=== PATIENT | male | born 1990 | race Caucasian/White ===

== ENCOUNTER 2023-10-31 20:50 | Emergency (ER) | payer OTHER, SELFPAY ==
[2023-10-31 20:57] VITALS: BP 138/73; PULSE 78; RESP 18; TEMP 37.1; O2SAT 100; BMI 29.2
--- OUTSIDE RECORDS SUMMARY | 2023-10-31 22:09 | XMS_ITS | Continuity of Care Document ---
Author Organization [facility] Aldo Adelfo lt Address [address] [place] [address]- Care Team Providers Care Case Management Manager Name Role Phone Sunny Gunn MD Primary Care Physician [place] [facility] [place]22 [facility] [place] Adult [address] [place] [address]- Allergies, Adverse Reactions, Alerts No Known Allergies Immunizations Given and Recorded Vaccine Date Status Refusal Reason tetanus/diphtheria/pertussis, acel(Tdap) 1 02/12/21 Given 1Result Comment: [facility]: 49566-695-21 Medications gabapentin 300 mg oral capsule 300 mg, 1, capsule, By Mouth, 3 times a day, # 90 capsule, Refills 0, Tot. Refills 0, Maintenance, 12/30/21 11:06:00 EDT, Route to Pharmacy Electronically, [facility], Partial fill upon patient request if the prescription is for a schedule... Start Date: 12/30/21 Stop Date: 01/29/22 Status: Ordered Medrol Dosepak 4 mg oral tablet 1 pack/packet, By Mouth, Daily, for 6 days, as directed on package labeling, # 21 tablet, 5 Refills, Acute 01/21/22 9:40:00 EDT, 12/16/21 9:40:00 EDT, Tablet, [id number], Partial fill upon patient request if the prescription is for a... Start Date: 12/16/21 Stop Date: 01/21/22 Status: Ordered Problem List Condition Effective Dates Status Health Status Inform ant BMI 36.0-36.9,adult(Confirmed) Active Family history of myocardial infarction at age less than 60(Confirmed) Active Obese class II(Confirmed) Active Social History Social History Type Response Tobacco Use: 4 or less cigar ettes(less than 1/4 pack)/day in last 30 days. Sex
--- OUTSIDE RECORDS SUMMARY | 2023-10-31 22:09 | XMS_ITS | Continuity of Care Document ---
Author Organization [facility] Aldo Adelfo lt Address [address] [place] [address]- Care Team Providers Care Patient Care Coordinator Name Role Phone Sunny Gunn MD Primary Care Physician [phone] [facility] [place] Date(s): 02/14/22 - 02/21/22 [facility] [place] Adult [address] [place] [address]- Attending Physician: Eda Velarde NP Referring Physician: Sunny Gunn MD Allergies, Adverse Reactions, Alerts No Known Allergies Immunizations Given and Recorded Vaccine Date Status Refusal Reason tetanus/diphtheria/pertussis, acel(Tdap) 1 02/12/21 Given 1Result Comment: [facility]: 50611-738-27 Medications gabapentin 300 mg oral capsule 600 mg, 2, capsule, By Mouth, 3 times a day, DOSAGE INCREASE, # 180 capsule, Refills 1, Tot. Refills 1, Maintenance, 02/14/22 9:37:00 EDT, Route to Pharmacy Electronically, [facility], Partial fill upon patient request if the prescription i... Start Date: 02/14/22 Status: Ordered Problem List Condition Effective Dates Status Health Status Inform ant Family history of myocardial infarction at age less than 60(Confirmed) Active Low back pain(Confirmed) Active Obese class II(Confirmed) Active Tobacco use(Confirmed) Active Vital Signs Most recent to oldest [Reference Range]: 1 Height 185.42 cm (02/14/22 9:00 AM) Weight 121.9 kg (02/14/22 9:00 AM) Oxygen Saturation [94-100 %] 98 % (02/14/22 9:00 AM) Pulse Rate [55-90 bpm] 60 bpm (02/14/22 9:00 AM) Body Mass Index [18.5-24.99] 35.46 *>HHI* (02/14/22 9:00 AM) Blood Pressure [90-138/55-84 mm Hg] 120/ 72mm Hg (02/14/22 9:00 AM) Respiratory Rate [16-30 br/min] 16 br/mi n (02/14/22 9:00 AM) Mode of Delivery (Oxygen) Room air (02/14/22 9:00 AM) Blood pressure sites Arm, left (02/14/22 9:00 AM) Weight Obtained Via Standing scale (02/14/22 9:00 AM) Social History Social History Type Response Tobacco Use: 4 or less cigar ettes(less than 1/4 pack)/day in last 30 days. Sex
--- OUTSIDE RECORDS SUMMARY | 2023-10-31 22:09 | XMS_ITS | Continuity of Care Document ---
Author Organization [facility] Aldo Adelfo lt Address [address] [place] [address]- Care Team Providers Care Punch Molder Name Role Phone Sunny Gunn MD Primary Care Physician [phone] [place] [facility] [place] 01/23/22 [facility] Adult [address] [place] [address]- Allergies, Adverse Reactions, Alerts No Known Allergies Immunizations Given and Recorded Vaccine Date Status Refusal Reason tetanus/diphtheria/pertussis, acel(Tdap) 1 02/12/21 Given 1Result Comment: [facility]: 88446-866-90 Medications gabapentin 300 mg oral capsule 300 mg, 1, capsule, By Mouth, 3 times a day, for 30 days, # 90 capsule, Refills 0, Tot. Refills 0, Hard Stop 01/29/22 11:06:00 EDT, 12/30/21 11:06:00 EDT, Route to Pharmacy Electronically, [facility], Partial fill upon patient request if th... Start Date: 12/30/21 Stop Date: 01/29/22 Status: Ordered gabapentin 300 mg oral capsule 300 mg, 1, capsule, By Mouth, 4 times a day, # 120 capsule, Refills 0, Tot. Refills 0, Maintenance,01/29/22 11:06:00 EDT, [facility], [facility], Partial fill upon patient request if the prescription is for a schedule... Start Date: 01/29/22 Stop Date: 02/28/22 Status: Ordered Problem List Condition Effective Dates Status Health Status Inform ant BMI 36.0-36.9,adult(Confirmed) Active Family history of myocardial infarction at age less than 60(Confirmed) Active Obese class II(Confirmed) Active Social History Social History Type Response Tobacco Use: 4 or less cigar ettes(less than 1/4 pack)/day in last 30 days. Sex
--- OUTSIDE RECORDS SUMMARY | 2023-10-31 22:09 | XMS_ITS | Continuity of Care Document ---
Author Organization [facility] Aldo Adelfo lt Address [address] [place] [address]- Care Team Providers Care Transit Planner Name Role Phone Velia AGUIRRE, Sunny Quinones Primary Care Physician [phone] Encounter [facility] Date(s): 06/30/22 - 07/07/22 [facility] Adult [address] [place] [address]- Attending Physician: Syd DUBOIS, Eda Bell Allergies, Adverse Reactions, Alerts No Known Allergies Immunizations Given and Recorded Vaccine Date Status Refusal Reason tetanus/diphtheria/pertussis, acel(Tdap) 1 02/12/21 Given 1Result Comment: [facility]: 85026-792-53 Medications gabapentin 300 mg oral capsule 600 mg, 2, capsule, By Mouth, 4 times a day, # 240 capsule, Refills 6, Tot. Refills 6, Maintenance,06/30/22 13:42:00 EST, Route to Pharmacy Electronically, [facility], Partial fill upon patient request if the prescription is for a schedule... Start Date: 06/30/22 Status: Ordered Problem List Condition Confirmation Course Effective Dates Status Health St atus Informant Obesity (BMI 35.0-39.9 without comorbidity) Confirmed Active Family history of myocardial infarction at age less than 60 Confirmed Active Low back pain Confirmed Active Tobacco use Confirmed Active Vital Signs Most recent to oldest [Reference Range]: 1 Height 185.42 cm (06/30/22 1:33 PM) Weight 126.9 kg (06/30/22 1:33 PM) Oxygen Saturation [94-100 %] 98 % (06/30/22 1:33 PM) Pulse Rate [55-90 bpm] 72 bpm (06/30/22 1:33 PM) Body Mass Index [18.5-24.99 kg/m2] 36.91 kg/m2 *>HHI* (06/30/22 1:33 PM) Blood Pressure [90-138/55-84 mm Hg] 112/ 74mm Hg (06/30/22 1:33 PM) Respiratory Rate [16-30 br/min] 20 br/mi n (06/30/22 1:33 PM) Temperature [96.8-100.4 DegF] 98.2 DegF (06/30/22 1:33 PM) Mode of Delivery (Oxygen) Room air (06/30/22 1:33 PM) Blood pressure sites Arm, right (06/30/22 1:33 PM) Temperature Route Oral (06/30/22 1:33 PM) Weight Obtained Via Standing scale (06/30/22 1:33 PM) Social History Social History Type Response Tobacco Use: 4 or less cigar ettes(less than 1/4 pack)/day in last 30 days. Sex Note * Roshni Aguilar: SIGN, VERIFY, PERFORM Event Display: Patient Education/Instruction Authored Date: [id number] [facility] Clinical Summary Name VIVIANE VENEGAS Age 31 Years 1990 PCP Velia AGUIRRE, Sunny Quinones PCP Visit Date 06/30/2022 13:25:00 Additional Instructions: Scheduled Appointments?? Future Appointments ?No Future Appointments Scheduled Follow-Up Instructions ?? With: Address: When: Syd DUBOIS, Eda Bell [address] [place] [address] Business (1) In 6 months Comments: CPE Diagnosis Medications: Please continue your medications until treatment is completed or stopped by your provider. Discuss any questions related to medications with your provider. Medications to Continue with No Changes [facility], [address], [place] [id number], [phone] Gabapentin (gabapentin 300 mg oral capsule) 2 capsule Oral 4 times a day. Refills: 6. Next Dose: Allergy Info:?? NKA Medications Given This Visit Future Orders ?No future orders Vital Signs Height 185.42 cm Weight 126.9 kg BMI 36.91 kg/m2 Blood Pressure 112 mm Hg/74 mm Hg Temperature 98.2 DegF Pulse Rate 72 bpm Respiratory Rate 20 br/min 02 Sat Mode of Delivery 98 %/Room air You can now view a summary of your hospital visit from the comfort of your home through a free online portal called [employer]. [employer] is a website that allows you to securely view your medical information including discharge summary, medications and follow-up visits. ??You can alsosend a secure electronic message to your doctor???s office to request appointments, renew medications or just ask a question. You can enroll at [email or web address] or register during your next office visit. Disclaimer:?? The information provided is of a general nature and is intended to be used in conjunction with the recommendations and advice of your health care practitioner. ??Every effort has been made to ensure that the information provided is accurate and complete at the time it is provided to you however, as your needs change, or, as new ??information becomes available, different or additional instructions may be required. If you have questions, please consult with your primary care provider or pharmacist, as appropriate. ??This information is not intended to serve as substitution for assessment and evaluation by a qualified health care provider. If you do not have a primary care provider, you may find a [facility] provider by calling [facility] [address] [employer] at [phone]. For information about the plan of care including goals and instructions for your diagnosis, please see the patient education orders section of this document. Patient Education Materials?? The content of this educational material or handout may have been modified, supplemented, or adapted from its original content and format to support your individualized medical care. Patient Care team information Care Team Personnel Name: Velia AGUIRRE, Sunny Quinones Position: S Primary Care Physician Member Role: PCP Address: Address: [address] [place] [address] [place] [address]- Care Team Related Persons Name: EMY VENEGAS Name: FLOR LANDRY Address: home [address] [facility] [place] [address]
--- OUTSIDE RECORDS SUMMARY | 2023-10-31 22:09 | XMS_ITS | Continuity of Care Document ---
Author Organization [facility] Aldo Adelfo lt Address [address] [place] [address]- Care Team Providers Care Nuclear Instructor Name Role Phone Sunny Gunn MD Primary Care Physician [phone] [place] [facility] [place] Date(s): 01/20/22 - 02/19/22 [facility] [place] Adult [address] [place] [address]- Allergies, Adverse Reactions, Alerts No Known Allergies Immunizations Given and Recorded Vaccine Date Status Refusal Reason tetanus/diphtheria/pertussis, acel(Tdap) 1 02/12/21 Given 1Result Comment: [facility]: 59525-353-95 Medications gabapentin 300 mg oral capsule 600 mg, 2, capsule, By Mouth, 3 times a day, DOSAGE INCREASE, # 180 capsule, Refills 1, Tot. Refills 1, Maintenance, 02/14/22 9:37:00 EDT, Route to Pharmacy Electronically, [facility], Partial fill upon patient request if the prescription i... Start Date: 02/14/22 Status: Ordered Problem List Condition Effective Dates Status Health Status Inform ant Family history of myocardial infarction at age less than 60(Confirmed) Active Low back pain(Confirmed) Active Obese class II(Confirmed) Active Tobacco use(Confirmed) Active Social History Social History Type Response Tobacco Use: 4 or less cigar ettes(less than 1/4 pack)/day in last 30 days. Sex
--- OUTSIDE RECORDS SUMMARY | 2023-10-31 22:09 | XMS_ITS | Continuity of Care Document ---
Author Organization [facility] Aldo Adelfo lt Address [address] [place] [address]- Care Team Providers Care Denial Resolution Specialist Name Role Phone Sunny Gunn MD Primary Care Physician [place] [facility] [place] 01/02/23 - 01/09/23 [facility] Miko [place] Adult [address] [place] [address]- Encounter Diagnosis Low back pain(Discharge Diagnosis) - 01/02/23 ADHD(Discharge Diagnosis) - 01/02/23 Obese class I(Discharge Diagnosis) - 01/02/23 Tobacco use(Discharge Diagnosis) - 01/02/23 Attending Physician: Eda Velarde NP Referring Physician: Sunny Gunn MD Allergies, Adverse Reactions, Alerts No Known Allergies Immunizations Given and Recorded Vaccine Date Status Refusal Reason tetanus/diphtheria/pertussis, acel(Tdap) 1 02/12/21 Given 1Result Comment: [facility]: 85955-034-98 Medications amphetamine-dextroamphetamine 15 mg oral tablet 0 Refills, Maintenance, 01/02/23 14:14:00 EDT, Partial fill upon patient request if the prescription is for a schedule II opioid drug. Start Date: 01/02/23 Status: Ordered amphetamine-dextroamphetamine 30 mg oral capsule, extended release 0 Refills, Maintenance, 01/02/23 14:13:00 EDT, Partial fill upon patient request if the prescription is for a schedule II opioid drug. Start Date: 01/02/23 Status: Ordered gabapentin 300 mg oral capsule 600 mg, 2, capsule, By Mouth, 3 times a day, DOSAGE DECREASE, # 180 capsule, Refills 6, Tot. Refills 6, Maintenance, 01/02/23 14:23:00 EDT, Route to Pharmacy Electronically, [facility], Partial fill upon patient request if the prescription... Start Date: 01/02/23 Status: Ordered Problem List Condition Confirmation Course Effective Dates Status Health St [facility] Informant Family history of myocardial infarction at age less than 60 Confirmed Active Low back pain Confirmed Active Obese class I Confirmed Active Tobacco use Confirmed Active Diagnosis Diagnosis Type Effective Dates Health Status Cl inical Service Informant ADHD Discharge Diagnosis 01/02/23 Low back pain Discharge Diagnosis 01/02/23 Obese class I Discharge Diagnosis 01/02/23 Tobacco use Discharge Diagnosis 01/02/23 Vital Signs Most recent to oldest [Reference Range]: 1 Height 185.42 cm (01/02/23 2:15 PM) Weight 105.7 kg (01/02/23 2:15 PM) Oxygen Saturation [94-100 %] 99 % (01/02/23 2:15 PM) Pulse Rate [55-90 bpm] 72 bpm (01/02/23 2:15 PM) Body Mass Index [18.5-24.99 kg/m2] 30.74 kg/m2 *>HHI* (01/02/23 2:15 PM) Blood Pressure [90-138/55-84 mm Hg] 126/ 74mm Hg (01/02/23 2:15 PM) Respiratory Rate [16-30 br/min] 16 br/mi n (01/02/23 2:15 PM) Temperature [96.8-100.4 DegF] 98.2 DegF (01/02/23 2:15 PM) Mode of Delivery (Oxygen) Room air (01/02/23 2:15 PM) Blood pressure sites Arm, right (01/02/23 2:15 PM) Temperature Route Oral (01/02/23 2:15 PM) Weight Obtained Via Standing scale (01/02/23 2:15 PM) Social History Social History Type Response Tobacco Use: 4 or less cigar ettes(less than 1/4 pack)/day in last 30 days. Sex Patient Care team information Care Team Personnel Name: Sunny Gunn MD Position: S Physician - Primary Care Member Role: PCP Address: Address: [address] [place] [address]- Care Team Related Persons Name: EMY VENEGAS Name: FLOR LANDRY Address: home [address] [facility] [place] [address]
--- OUTSIDE RECORDS SUMMARY | 2023-10-31 22:09 | XMS_ITS | Continuity of Care Document ---
Author Organization [facility] Aldo Adelfo lt Address [address] [place] [address]- Care Team Providers Care Wool Hanker Name Role Phone Sunny Gunn MD Primary Care Physician [phone] [facility] [place] Date(s): 12/30/21 - 01/29/22 [facility] Miko Carlson Adult [address] [place] [address]- Allergies, Adverse Reactions, Alerts No Known Allergies Immunizations Given and Recorded Vaccine Date Status Refusal Reason tetanus/diphtheria/pertussis, acel(Tdap) 1 02/12/21 Given 1Result Comment: [facility] [place]: 15475-276-89 Medications gabapentin 300 mg oral capsule 300 mg, 1, capsule, By Mouth, 4 times a day, # 120 capsule, Refills 0, Tot. Refills 0, Maintenance,01/29/22 11:06:00 EDT, Route to Pharmacy Electronically, [facility], Partial fill upon patient request if the [...]
--- OUTSIDE RECORDS SUMMARY | 2023-10-31 22:09 | XMS_ITS | Continuity of Care Document ---
Author Organization [facility] Aldo Adelfo lt Address [address] [place] [address]- Care Team Providers Care Grinding Wheel Dresser Name Role Phone Sunny Gunn MD Primary Care Physician Encounter [facility] Date(s): 02/12/21 - 02/19/21 [facility] Adult [address] [place] [address]- Encounter Diagnosis Family history of myocardial infarction at age less than 60(Discharge Diagnosis) - 02/12/21 Attending Physician: Sunny Gunn MD Referring Physician: Eda Velarde NP Allergies, Adverse Reactions, Alerts Substance Reaction Severity Status NKA Active Immunizations Given and Recorded Vaccine Date Status Refusal Reason tetanus/diphtheria/pertussis, acel(Tdap) 1 02/12/21 Given 1Result Comment: [facility]: [id number] Problem List Condition Effective Dates Status Health Status Inform ant BMI 36.0-36.9,adult(Confirmed) Active Family history of myocardial infarction at age less than 60(Confirmed) Active Diagnosis Diagnosis Type Effective Dates Health Status Clinical Service Informant Family history of myocardial infarction at age less than 60 Discharge Diagnosis 02/12/21 Vital Signs Most recent to oldest [Reference Range]: 1 Height 185.42 cm (02/12/21 8:39 AM) Weight 124.7 kg (02/12/21 8:39 AM) Oxygen Saturation [94-100 %] 98 % (02/12/21 8:39 AM) Pulse Rate [55-90 bpm] 60 bpm (02/12/21 8:39 AM) Body Mass Index [18.5-24.99] 36.27 *>HHI* (02/12/21 8:39 AM) Blood Pressure [90-138/55-84 mm Hg] 128/ 68mm Hg (02/12/21 8:39 AM) Respiratory Rate [16-30 br/min] 12 br/mi n *L* (02/12/21 8:39 AM) Temperature [96.8-100.4 DegF] 98.0 DegF (02/12/21 8:39 AM) Mode of Delivery (Oxygen) Room air (02/12/21 8:39 AM) Blood pressure sites Arm, right (02/12/21 8:39 AM) Temperature Route Oral (02/12/21 8:39 AM) Weight Obtained Via Standing scale (02/12/21 8:39 AM) Social History Social History Type Response Tobacco Use: 4 or less cigar ettes(less than 1/4 pack)/day in last 30 days. Sex
--- OUTSIDE RECORDS SUMMARY | 2023-10-31 22:09 | XMS_ITS | Continuity of Care Document ---
Author Organization [facility] Adelfo lt Address [address] [place] [address]- Care Team Providers Care Automatic Typewriter Inspector Name Role Phone Sunny Gunn MD Primary Care Physician [place] [facility] [place] 12[place]16/21 - 12/23/21 [facility] Adult [address] [place] [address]- Attending Physician: Syd DUBOIS, Eda Bell Allergies, Adverse Reactions, Alerts No Known Allergies Immunizations Given and Recorded Vaccine Date Status Refusal Reason tetanus/diphtheria/pertussis, acel(Tdap) 1 02/12/21 Given 1Result Comment: [facility]: [id number] Medications gabapentin 100 mg oral capsule 100 mg, 1, capsule, By Mouth, 3 times a day, # 90 capsule, Refills 0, Tot. Refills 0, Maintenance, 12/20/21 17:01:00 EDT, Route to Pharmacy Electronically, [id number], Partial fill upon patient request if the prescription is for a schedule... Start Date: 12/20/21 Status: Ordered Medrol Dosepak 4 mg oral tablet 1 pack/packet, By Mouth, Daily, for 6 days, as directed on package labeling, # 21 tablet, 5 Refills, Acute 01/21/22 9:40:00 EDT, 12/16/21 9:40:00 EDT, Tablet, [id number], Partial fill upon patient request if the prescription is for a... Start Date: 12/16/21 Stop Date: 01/21/22 Status: Ordered Problem List Condition Effective Dates Status Health Status Inform ant BMI 36.0-36.9,adult(Confirmed) Active Family history of myocardial infarction at age less than 60(Confirmed) Active Obese class II(Confirmed) Active Vital Signs Most recent to oldest [Reference Range]: 1 Height 185.42 cm (12/16/21 9:04 AM) Weight 127.1 kg (12/16/21 9:04 AM) Oxygen Saturation [94-100 %] 99 % (12/16/21 9:04 AM) Pulse Rate [55-90 bpm] 66 bpm (12/16/21 9:04 AM) Body Mass Index [18.5-24.99] 36.97 *>HHI* (12/16/21 9:04 AM) Blood Pressure [90-138/55-84 mm Hg] 114/ 78mm Hg (12/16/21 9:04 AM) Respiratory Rate [16-30 br/min] 20 br/mi n (12/16/21 9:04 AM) Mode of Delivery (Oxygen) Room air (12/16/21 9:04 AM) Blood pressure sites Arm, left (12/16/21 9:04 AM) Social History Social History Type Response Tobacco Use: 4 or less cigar ettes(less than 1/4 pack)/day in last 30 days. Sex
--- OUTSIDE RECORDS SUMMARY | 2023-10-31 22:09 | XMS_ITS | Continuity of Care Document ---
Author Organization [facility] Aldo Adelfo lt Address [address] [place] [address]- Care Team Providers Care Wood Grainer Name Role Phone Sunny Gunn MD Primary Care Physician [place] [facility] [place]/20/22 - 02/19/22 [facility] Adult [address] [place] [address]- Allergies, Adverse Reactions, Alerts No Known Allergies Immunizations Given and Recorded Vaccine Date Status Refusal Reason tetanus/diphtheria/pertussis, acel(Tdap) 1 02/12/21 Given 1Result Comment: [facility] [place]: [id number] Medications gabapentin 300 mg oral capsule 600 mg, 2, capsule, By Mouth, 3 times a day, DOSAGE INCREASE, # 180 capsule, Refills 1, Tot. Refills 1, Maintenance, 02/14/22 9:37:00 EDT, Route to Pharmacy Electronically, [facility], Partial fill upon patient request if the [...]
--- OUTSIDE RECORDS SUMMARY | 2023-10-31 22:09 | XMS_ITS | Continuity of Care Document ---
Author Organization [facility] [place] Adelfo Address [address] [place] [address]- Care Team Providers Care Insurance Loss Control Surveyor Name Role Phone Sunny Gunn MD Primary Care Physician [place] [facility] [place](s): 09/08/22 - 10/08/22 [facility] [place] Adult [address] [place] [address]- Allergies, Adverse Reactions, Alerts No Known Allergies Immunizations Given and Recorded Vaccine Date Status Refusal Reason tetanus/diphtheria/pertussis, acel(Tdap) 1 02/12/21 Given 1Result Comment: [facility]: [id number] Medications gabapentin 300 mg oral capsule 600 mg, 2, capsule, By Mouth, 4 times a day, # 240 capsule, Refills 6, Tot. Refills 6, Maintenance,06/30/22 13:42:00 EST, Route to Pharmacy Electronically, [facility], Partial fill upon patient request if the prescription is for a schedule... Start Date: 06/30/22 Status: Ordered Problem List Condition Confirmation Course Effective Dates Status Health St atus Informant Obesity (BMI 35.0-39.9 without comorbidity) Confirmed Active Family history of myocardial infarction at age less than 60 Confirmed Active Low back pain Confirmed Active Tobacco use Confirmed Active Social History Social History Type Response Tobacco Use: 4 or less cigar ettes(less than 1/4 pack)/day in last 30 days. Sex Patient Care team information Care Team Personnel Name: Sunny Gunn MD Position: S Primary Care Physician Member Role: PCP Address: Address: [address] [place] [address]- Care Team Related Persons Name: EMY VENEGAS Name: FLOR LANDRY Address: home [address] [place] [address]
--- OUTSIDE RECORDS SUMMARY | 2023-10-31 22:09 | XMS_ITS | Continuity of Care Document ---
Author Organization [facility] Address [address] [place] [address] radhika, [address] [place] [address]- Care Team Providers Care Well Logging Operator Mud Analysis Name Role Phone Sunny Gunn MD Primary Care Physician Encounter [facility] [place] Date(s): 02/12/22 - 03/14/22 [facility] [address] [place] [address] Drive, [address] [place] [address]- us Attending Physician: AdmSummer street Admitting Physician: AdmtrSummer Referring Physician: Admtr ArJohn Allergies, Adverse Reactions, Alerts No Known Allergies Immunizations Given and Recorded Vaccine Date Status Refusal Reason tetanus/diphtheria/pertussis, acel(Tdap) 1 02/12/21 Given 1Result Comment: [facility]: [id number] Medications gabapentin 300 mg oral capsule 600 mg, 2, capsule, By Mouth, 4 times a day, # 240 capsule, Refills 6, Tot. Refills 6, Maintenance,03/04/22 11:46:00 EDT, Route to Pharmacy Electronically, [facility], Partial fill upon patient request if the prescription is for a schedule... Start Date: 03/04/22 Status: Ordered Problem List Condition Effective Dates Status Health Status Inform ant Family history of myocardial infarction at age less than 60(Confirmed) Active Low back pain(Confirmed) Active Obese class I(Confirmed) Active Tobacco use(Confirmed) Active Social History Social History Type Response Tobacco Use: 4 or less cigar ettes(less than 1/4 pack)/day in last 30 days. Sex Care Team Personnel Name: Sunny Gunn MD Address: [address] [place] [address]-
--- OUTSIDE RECORDS SUMMARY | 2023-10-31 22:09 | XMS_ITS | Continuity of Care Document ---
Author Organization [facility] Adelfo Address [address] [place] [address]- Care Team Providers Care Shake Feeder Name Role Phone Sunny Gunn MD Primary Care Physician Encounter [facility] [place] Date(s): 02/06/22 - 03/08/22 [facility] Adult [address] [place] [address] Allergies, Adverse Reactions, Alerts No Known Allergies Immunizations Given and Recorded Vaccine Date Status Refusal Reason tetanus/diphtheria/pertussis, acel(Tdap) 1 02/12/21 Given 1Result Comment: [facility]: [id number] Medications gabapentin 300 mg oral capsule 600 mg, 2, capsule, By Mouth, 4 times a day, # 240 capsule, Refills 6, Tot. Refills 6, Maintenance,03/04/22 11:46:00 EDT, Route to Pharmacy Electronically, [facility], Partial fill upon patient request if the [...] Team Personnel Name: Sunny Gunn MD Address: [address] [place] [id number]
--- OUTSIDE RECORDS SUMMARY | 2023-10-31 22:09 | XMS_ITS | Continuity of Care Document ---
Author Organization [facility] Adelfo Address [address] [place] [address]- Care Team Providers Care Construction Administrative Assistant Name Role Phone Velia AGUIRRE, Sunny Quinones Primary Care Physician Encounter [facility] [place] Date(s): 03/04/22 - 03/11/22 [facility] Adult [address] [place] [address]- Encounter Diagnosis Low back pain(Discharge Diagnosis) - 03/04/22 Attending Physician: Syd DUBOIS, Eda Bell Allergies, Adverse Reactions, Alerts No Known Allergies Immunizations Given and Recorded Vaccine Date Status Refusal Reason tetanus/diphtheria/pertussis, acel(Tdap) 1 02/12/21 Given 1Result Comment: [facility]: [id number] Medications gabapentin 300 mg oral capsule 600 mg, 2, capsule, By Mouth, 4 times a day, # 240 capsule, Refills 6, Tot. Refills 6, Maintenance,03/04/22 11:46:00 EDT, Route to Pharmacy Electronically, [facility], Partial fill upon patient request if the prescription is for a schedule... Start Date: 03/04/22 Status: Ordered Problem List Condition Effective Dates Status Health Status Inform ant Family history of myocardial infarction at age less than 60(Confirmed) Active Low back pain(Confirmed) Active Obese class I(Confirmed) Active Tobacco use(Confirmed) Active Diagnosis Diagnosis Type Effective Dates Health Status Cl inical Service Informant Low back pain Discharge Diagnosis 03/04/22 Vital Signs Most recent to oldest [Reference Range]: 1 Height 185.42 cm (03/04/22 11:27 AM) Weight 118.1 kg (03/04/22 11:27 AM) Body Mass Index [18.5-24.99] 34.35 *>HHI* (8/23/22 11:27 AM) Weight Obtained Via Patient/family state d (03/04/22 11:27 AM) Social History Social History Type Response Tobacco Use: 4 or less cigar ettes(less than 1/4 pack)/day in last 30 days. Sex Care Team Personnel Name: Velia AGUIRRE, Sunny Quinones Address: [address] [place] [id number]
--- OUTSIDE RECORDS SUMMARY | 2023-10-31 22:09 | XMS_ITS | Continuity of Care Document ---
Author Organization [facility] Ald[facility] Adelfo lt Address [address] [place] [address]- Care Team Providers Care Plastic Press Operator Name Role Phone Sunny Gunn MD Primary Care Physician Encounter [facility] [place] Date(s): 12/30/21 - 01/29/22 [facility] Miko Carlson Adult [address] [place] [address]- Allergies, Adverse Reactions, Alerts No Known Allergies Immunizations Given and Recorded Vaccine Date Status Refusal Reason tetanus/diphtheria/pertussis, acel(Tdap) 1 02/12/21 Given 1Result Comment: [facility]: 72067-770-07 Medications gabapentin 300 mg oral capsule 300 mg, 1, capsule, By Mouth, 4 times a day, # 120 capsule, Refills 0, Tot. Refills 0, Maintenance,01/29/22 11:06:00 EDT, Route to Pharmacy Electronically, [facility], Partial fill upon patient request if the [...]
--- OUTSIDE RECORDS SUMMARY | 2023-10-31 22:09 | XMS_ITS | Continuity of Care Document ---
Author Organization [facility] Miko Carlson Adelfo lt Address [address] [place] [address]- Care Team Providers Care Motor Man Name Role Phone Sunny Gunn MD Primary Care Physician Encounter [facility] [place] Date(s): 07/31/23 - 08/07/23 [facility] Miko Carlson Adult [address] [place] [address]- Encounter Diagnosis Wellness examination(Discharge Diagnosis) - 07/31/23 Low back pain(Discharge Diagnosis) - 07/31/23 Tobacco use(Discharge Diagnosis) - 07/31/23 ADHD(Discharge Diagnosis) - 07/31/23 Attending Physician: Eda Velarde NP Referring Physician: Sunny Gunn MD Allergies, Adverse Reactions, Alerts No Known Allergies Immunizations Given and Recorded Vaccine Date Status Refusal Reason tetanus/diphtheria/pertussis, acel(Tdap) 1 02/12/21 Given 1Result Comment: [facility]: [id number] Medications amphetamine-dextroamphetamine 15 mg oral tablet 0 [...] By Mouth, 3 times a day, # 180 capsule, Refills 6, Tot. Refills 6, Maintenance,07/31/23 13:52:00 EST, Route to Pharmacy Electronically, [facility], Partial fill upon patient request if the prescription is for a schedule... Start Date: 07/31/23 Status: Ordered Problem List Condition Confirmation Course Effective Dates Status Health St atus Informant ADHD Confirmed Active Family history of myocardial infarction at age less than 60 Confirmed Active Low back pain Confirmed Active Tobacco use Confirmed Active Diagnosis Diagnosis Type Effective Dates Health Status Clinical Service Informant Wellness examination Discharge Diagnosis 07/31/23 Low back pain Discharge Diagnosis 07/31/23 Tobacco use Discharge Diagnosis 07/31/23 ADHD Discharge Diagnosis 07/31/23 Vital Signs Most recent to oldest [Reference Range]: 1 Height 185.42 cm (07/31/23 1:37 PM) Weight 96.6 kg (07/31/23 1:37 PM) Oxygen Saturation [94-100 %] 99 % (07/31/23 1:37 PM) Pulse Rate [55-90 bpm] 75 bpm (07/31/23 1:37 PM) Body Mass Index [18.5-24.99 kg/m2] 28.1 kg/m2 *H* (07/31/23 1:37 PM) Blood Pressure [90-138/55-84 mm Hg] 128/ 72mm Hg (07/31/23 1:37 PM) Temperature [96.8-100.4 DegF] 97.5 DegF (07/31/23 1:37 PM) Mode of Delivery (Oxygen) Room air (07/31/23 1:37 PM) Blood pressure sites Arm, left (07/31/23 1:37 PM) Temperature Route Oral (07/31/23 1:37 PM) Weight Obtained Via Standing scale (07/31/23 1:37 PM) Social History Social History Type Response Tobacco Use: 4 or less cigar ettes(less than 1/4 pack)/day in last 30 days. Sex Note * Roshni Aguilar: PERFORM, SIGN, VERIFY Event Display: Patient Education/Instruction Authored Date: [id number] [facility] *BACILIO Anderson Clinical Summary Name VIVIANE VENEGAS Age 33 Years 1990 PCP Velia AGUIRRE, Sunny Quinones PCP Visit Date 07/31/2023 13:31:00 Additional Instructions: Scheduled Appointments?? Future Appointments ?No Future Appointments Scheduled Follow-Up Instructions ?? With: Address: When: Syd DUBOIS, Eda Bell [address] [place], [place] [id number] Business (1) In 6 months Diagnosis Medications: Please continue your medications until treatment is completed or stopped by your provider. Discuss any questions related to medications with your provider. Medications to Continue Taking That Have Changed [facility], [address] [place] [phone], [phone] - Gabapentin (gabapentin 300 mg oral capsule) 2 capsule Oral 3 times a day. Refills: 6. Next Dose: Medications to Continue with No Changes These medications were not printed or sent to your pharmacy Amphetamine-Dextroamphetamine (amphetamine-dextroamphetamine 15 mg oral tablet) Next Dose: Amphetamine-Dextroamphetamine (amphetamine-dextroamphetamine 30 mg oral capsule, extended release) Next Dose: Allergy Info:?? NKA Medications Given This Visit Future Orders ?Comprehensive Metabolic Panel? Order Date:07/31/23?- Complete on or after?07/31/23 ?HDL Cholesterol? Order Date:07/31/23?- Complete on or after?07/31/23 ?Direct LDL? Order Date:07/31/23?- Complete on or after?07/31/23 ?Cholesterol Total? Order Date:07/31/23?- Complete on or after?07/31/23 Vital Signs Height 185.42 cm Weight 96.6 kg BMI 28.1 kg/m2 Blood Pressure 128 mm Hg/72 mm Hg Temperature 97.5 DegF Pulse Rate 75 bpm Respiratory Rate 02 Sat Mode of Delivery 99 %/Room air You can now view a summary of your hospital visit from the comfort of your home through a free online portal called [employer]. [employer]ative is a website that allows you to securely view your medical information including discharge summary, medications and follow-up visits. ??You can alsosend a secure electronic message to your doctor???s office to request appointments, renew medications or just ask a question. You can enroll at [email or web address] or register during your next office visit. [...] primary care provider, you may find a [facility] provider by calling [facility] [facility] at [phone]. [facility], in keeping with [facility] guidance, no longer requires face masks for staff, patientsor visitors in most situations. Similar to time spent indoors at other locations, there is the chance that you were exposed to respiratory viruses during your time with us (such as flu or COVID-19).? If you develop symptoms concerning for a viral respiratory infection, please seek testing (and treatment if indicated) from your medical provider or home test kit. For information about the plan of care [...] Name: Velia AGUIRRE, Sunny Quinones Position: S Physician - Primary Care Member Role: PCP Address: Address: [address] [place] [address] [place] [address]- Care Team Related Persons Name: EMY VENEGAS Name: FLOR LANDRY Address: home [address] [place] [address]
--- OUTSIDE RECORDS SUMMARY | 2023-10-31 22:09 | XMS_ITS | Continuity of Care Document ---
Author Organization [facility] Adelfo Address [address] [place] [address]- Care Team Providers Care Wind Farm Electrical Systems Designer Name Role Phone Sunny Gunn MD Primary Care Physician Encounter [facility] [place] Date(s): 12/12/21 - 01/12/22 [facility] Adult [address] [place] [address]- Attending Physician: Louie DUBOIS, Kisha Weir Allergies, Adverse Reactions, Alerts No Known Allergies Immunizations Given and Recorded Vaccine Date Status Refusal Reason tetanus/diphtheria/pertussis, acel(Tdap) 1 02/12/21 Given 1Result Comment: [facility]: 45300-193-58 Medications gabapentin 300 mg oral capsule 300 mg, 1, capsule, By Mouth, 3 times a day, # 90 capsule, Refills 0, Tot. Refills 0, Maintenance, 12/30/21 11:06:00 EDT, [facility], Partial fill upon patient request if the prescription is for a schedule... Start Date: 12/30/21 Stop Date: 01/29/22 Status: Ordered Medrol Dosepak 4 mg oral tablet 1 pack/packet, By Mouth, Daily, for 6 days, as directed on package labeling, # 21 tablet, 5 Refills, Acute 01/21/22 9:40:00 EDT, 12/16/21 9:40:00 EDT, Tablet, [id number], Partial fill upon patient request if the [...]
--- OUTSIDE RECORDS SUMMARY | 2023-10-31 22:09 | XMS_ITS | Continuity of Care Document ---
Author Organization [facility] Adelfo Address [address] [place] [address]- Care Team Providers Care Chemical Operator Name Role Phone Sunny Gunn MD Primary Care Physician Encounter [facility] [place] Date(s): 02/04/22 - 02/11/22 [facility] Adult [address] [place] [address]- Encounter Diagnosis Low back pain(Discharge Diagnosis) - 02/04/22 Attending Physician: Not on Staff, Attending MD Allergies, Adverse Reactions, Alerts No Known Allergies Immunizations Given and Recorded Vaccine Date Status Refusal Reason tetanus/diphtheria/pertussis, acel(Tdap) 1 02/12/21 Given 1Result Comment: [facility]: 38967-814-15 Medications gabapentin 400 mg oral capsule 400 mg, 1, capsule, By Mouth, 4 times a day, DOSAGE INCREASE, # 120 capsule, Refills 1, Tot. Refills 1, Maintenance, 02/04/22 11:21:00 EDT, Route to Pharmacy Electronically, [facility], Partial fill upon patient request if the prescription... Start Date: 02/04/22 Status: Ordered Problem List Condition Effective Dates Status Health Status Inform ant BMI 36.0-36.9,adult(Confirmed) Active Family history of myocardial infarction at age less than 60(Confirmed) Active Low back pain(Confirmed) Active Obese class II(Confirmed) Active Diagnosis Diagnosis Type Effective Dates Health Status Cl inical Service Informant Low back pain Discharge Diagnosis 02/04/22 Vital Signs Most recent to oldest [Reference Range]: 1 Height 185.42 cm (02/04/22 10:41 AM) Weight 129.5 kg (02/04/22 10:41 AM) Body Mass Index [18.5-24.99] 37.67 *>HHI* (02/04/22 10:41 AM) Weight Obtained Via Patient/family state d (02/04/22 10:41 AM) Social History Social History Type Response Tobacco Use: 4 or less cigar ettes(less than 1/4 pack)/day in last 30 days. Sex
--- OUTSIDE RECORDS SUMMARY | 2023-10-31 22:09 | XMS_ITS | Continuity of Care Document ---
Author Organization [facility] Adelfo Address [address] [place] [address]- Care Team Providers Care Assembly Leader Name Role Phone Sunny Gunn MD Primary Care Physician [phone] [place] [facility] [place]26[place]22 - 03/28/22 [facility] Adult [address] [place] [address] Allergies, Adverse Reactions, Alerts No Known Allergies Immunizations Given and Recorded Vaccine Date Status Refusal Reason tetanus/diphtheria/pertussis, acel(Tdap) 1 02/12/21 Given 1Result Comment: [facility]: 18840-075-52 Medications gabapentin 300 mg oral capsule 600 mg, 2, capsule, By Mouth, 4 times a day, # 240 capsule, Refills 6, Tot. Refills 6, Maintenance,03/04/22 11:46:00 EDT, Route to Pharmacy Electronically, [id number], Partial fill upon patient request if the [...] Team Personnel Name: Sunny Gunn MD Address: [address] [place] [address]
--- OUTSIDE RECORDS SUMMARY | 2023-10-31 22:09 | XMS_ITS | Continuity of Care Document ---
Author Organization [facility] Address [address] [place] [address], [address] [place] [address]- Care Team Providers Care Margin Trimmer Name Role Phone Sunny Gunn MD Primary Care Physician Encounter [facility] [place] Date(s): 02/12/22 - 02/19/22 [facility] [address] [place] [address], [address] [place], [place] [address] Attending Physician: Nani No DO Referring Physician: Sunny Gunn MD Allergies, Adverse Reactions, Alerts No Known Allergies Immunizations Given and Recorded Vaccine Date Status Refusal Reason tetanus/diphtheria/pertussis, acel(Tdap) 1 02/12/21 Given 1Result Comment: [facility]: [id number] Medications gabapentin 300 mg oral capsule 600 mg, 2, capsule, By Mouth, 3 times a day, DOSAGE INCREASE, # 180 capsule, Refills 1, Tot. Refills 1, Maintenance, 02/14/22 9:37:00 EDT, Route to Pharmacy Electronically, [facility], Partial fill upon patient request if the prescription i... Start Date: 02/14/22 Status: Ordered Problem List Condition Effective Dates Status Health Status Inform ant Family history of myocardial infarction at age less than 60(Confirmed) Active Low back pain(Confirmed) Active Obese class II(Confirmed) Active Tobacco use(Confirmed) Active Vital Signs Most recent to oldest [Reference Range]: 1 Height 185.42 cm (02/12/22 8:53 AM) Weight 129.5 kg (02/12/22 8:53 AM) Body Mass Index [18.5-24.99] 37.67 *>HHI* (02/12/22 8:53 AM) Social History Social History Type Response Tobacco Use: 4 or less cigar ettes(less than 1/4 pack)/day in last 30 days. Sex
--- OUTSIDE RECORDS SUMMARY | 2023-10-31 22:09 | XMS_ITS | Continuity of Care Document ---
Author Organization [facility] Ald[facility] Adelfo lt Address [address] [place] [address]- Care Team Providers Care Rack Puller Name Role Phone Sunny Gunn MD Primary Care Physician [place] [facility] [place] 12/23/21 - 01/22/22 [facility] Adult [address] [place] [address]- Allergies, Adverse Reactions, Alerts No Known Allergies Immunizations Given and Recorded Vaccine Date Status Refusal Reason tetanus/diphtheria/pertussis, acel(Tdap) 1 02/12/21 Given 1Result Comment: [facility]: 52823-143-46 Medications gabapentin 300 mg oral capsule 300 mg, 1, capsule, By Mouth, 3 times a day, for 30 days, # 90 capsule, Refills 0, Tot. Refills 0, Hard Stop 01/29/22 11:06:00 EDT, 12/30/21 11:06:00 EDT, Route to Pharmacy Electronically, [facility], Partial fill upon patient request if th... Start Date: 12/30/21 Stop Date: 01/29/22 Status: Ordered gabapentin 300 mg oral capsule 300 mg, 1, capsule, By Mouth, 4 times a day, # 120 capsule, Refills 0, Tot. Refills 0, Maintenance,01/29/22 11:06:00 EDT, [facility], Partial fill upon patient request [...]
--- OUTSIDE RECORDS SUMMARY | 2023-10-31 22:09 | XMS_ITS | Continuity of Care Document ---
Author Organization [facility] Aldo Adelfo lt Address [address] [place] [address]- Care Team Providers Care Websphere Portal Developer Name Role Phone Velia AGUIRRE, Sunny Quinones Primary Care Physician Encounter [facility] Date(s): 02/03/22 - 03/05/22 [facility] Miko Haynesley Adult [address] [place] [address]- Allergies, Adverse Reactions, Alerts No Known Allergies Immunizations Given and Recorded Vaccine Date Status Refusal Reason tetanus/diphtheria/pertussis, acel(Tdap) 1 02/12/21 Given 1Result Comment: [facility]: 27266-142-28 Medications gabapentin 300 mg oral capsule 600 mg, 2, capsule, By Mouth, 4 times a day, # 240 capsule, Refills 6, Tot. Refills 6, Maintenance,03/04/22 11:46:00 EDT, Route to Pharmacy Electronically, [facility], Partial fill upon patient request if the [...]
--- OUTSIDE RECORDS SUMMARY | 2023-10-31 22:09 | XMS_ITS | Continuity of Care Document ---
Author Organization [facility] Aldo Adelfo lt Address [address] [place] [address]- Care Team Providers Care Crusher Machine Operator Name Role Phone Sunny Gunn MD Primary Care Physician [phone] [place] [facility] [place]20[place]21 - 01/19/22 [facility] Adult [address] [place] [address]- Allergies, Adverse Reactions, Alerts No Known Allergies Immunizations Given and Recorded Vaccine Date Status Refusal Reason tetanus/diphtheria/pertussis, acel(Tdap) 1 02/12/21 Given 1Result Comment: [facility]: 48770-394-06 Medications gabapentin 300 mg oral capsule 300 mg, 1, capsule, By Mouth, 3 times a day, # 90 capsule, Refills 0, Tot. Refills 0, Maintenance, 12/30/21 11:06:00 EDT, Route to Pharmacy Electronically, [facility], Partial fill upon patient request if the prescription is for a schedule... Start Date: 12/30/21 Stop Date: 01/29/22 Status: Ordered Medrol Dosepak 4 mg oral tablet 1 pack/packet, By Mouth, Daily, for 6 days, as directed on package labeling, # 21 tablet, 5 Refills, Acute 01/21/22 9:40:00 EDT, 12/16/21 9:40:00 EDT, Tablet, [facility][id number], Partial fill upon patient request if the [...]
--- OUTSIDE RECORDS SUMMARY | 2023-10-31 22:09 | XMS_ITS | Continuity of Care Document ---
Author Organization [facility] Aldo Adelfo lt Address [address] [place] [address]- Care Team Providers Care Porcelain Enameling Supervisor Name Role Phone Velia AGUIRRE, Sunny Quinones Primary Care Physician Encounter [facility] Date(s): 02/14/21 - 03/16/21 [facility] Adult [address] [place] [address]- Allergies, Adverse Reactions, Alerts Substance Reaction Severity Status NKA Active Immunizations Given and Recorded Vaccine Date Status Refusal Reason tetanus/diphtheria/pertussis, acel(Tdap) 1 02/12/21 Given 1Result Comment: [facility]: [id number] Problem List Condition Effective Dates Status Health Status Inform ant BMI 36.0-36.9,adult(Confirmed) Active Family history of myocardial infarction at age less than 60(Confirmed) Active Social History Social History Type Response Tobacco Use: 4 or less cigar ettes(less than 1/4 pack)/day in last 30 days. Sex
--- OUTSIDE RECORDS SUMMARY | 2023-10-31 22:09 | XMS_ITS | Continuity of Care Document ---
Author Organization [facility] Adelfo Address [address] [place] [address]- Care Team Providers Care Maintenance Planning Clerk Name Role Phone Sunny Gunn MD Primary Care Physician [place] [facility] - 03/08/22 [facility] Adult [address] [place] [id number] Allergies, Adverse Reactions, Alerts No Known Allergies Immunizations Given and Recorded Vaccine Date Status Refusal Reason tetanus/diphtheria/pertussis, acel(Tdap) 1 02/12/21 Given 1Result Comment: [facility]: [id number] Medications gabapentin 300 mg oral capsule 600 mg, 2, capsule, By Mouth, 4 times a day, # 240 capsule, Refills 6, Tot. Refills 6, Maintenance,03/04/22 11:46:00 EDT, Route to Pharmacy Electronically, [id number], Partial fill upon patient request if the [...] Team Personnel Name: Sunny Gunn MD Address: [address] [place] [id number]
--- OUTSIDE RECORDS SUMMARY | 2023-10-31 22:09 | XMS_ITS | Continuity of Care Document ---
Author Organization [facility] Aldo Adelfo lt Address [address] [place] [address]- Care Team Providers Care Project Engineering Manager Name Role Phone Sunny Gunn MD Primary Care Physician [phone] Encounter [facility] [place] Date(s): 12/30/21 - 01/29/22 [facility] Miko Carlson Adult [address] [place] [address]- Allergies, Adverse Reactions, Alerts No Known Allergies Immunizations Given and Recorded Vaccine Date Status Refusal Reason tetanus/diphtheria/pertussis, acel(Tdap) 1 02/12/21 Given 1Result Comment: [facility]: [id number] Medications gabapentin 300 mg oral capsule 300 mg, 1, capsule, By Mouth, 4 times a day, # 120 capsule, Refills 0, Tot. Refills 0, Maintenance,01/29/22 11:06:00 EDT, Route to Pharmacy Electronically, [id number], Partial fill upon patient request if the [...]
--- OUTSIDE RECORDS SUMMARY | 2023-10-31 22:09 | XMS_ITS | Continuity of Care Document ---
Author Organization [facility] Aldo Adelfo lt Address [address] [place] [address]- Care Team Providers Care Enrollment Management Director Name Role Phone Sunny Gunn MD Primary Care Physician [place] [facility] [place](s): 12/12/21 - 01/11/22 [facility] Adult [address] [place] [address]- Allergies, Adverse Reactions, Alerts No Known Allergies Immunizations Given and Recorded Vaccine Date Status Refusal Reason tetanus/diphtheria/pertussis, acel(Tdap) 1 02/12/21 Given 1Result Comment: [facility]: [id number] Medications gabapentin 300 mg oral capsule 300 mg, 1, capsule, By Mouth, 3 times a day, # 90 capsule, Refills 0, Tot. Refills 0, Maintenance, 12/30/21 11:06:00 EDT, Route to Pharmacy Electronically, [id number], Partial fill upon patient request if the prescription is for a schedule... Start Date: 12/30/21 Stop Date: 01/29/22 Status: Ordered Medrol Dosepak 4 mg oral tablet 1 pack/packet, By Mouth, Daily, for 6 days, as directed on package labeling, # 21 tablet, 5 Refills, Acute 01/21/22 9:40:00 EDT, 12/16/21 9:40:00 EDT, Tablet, [id number], Partial fill upon patient request if the [...]
--- OUTSIDE RECORDS SUMMARY | 2023-10-31 22:09 | XMS_ITS | Continuity of Care Document ---
Author Organization [facility] Adelfo Address [address] [place] [address]- Care Team Providers Care Affiliate Marketing Specialist Name Role Phone Sunny Gunn MD Primary Care Physician Encounter [facility] Date(s): 02/25/22 - 03/27/22 [facility] Adult [address] [place] [id number] Allergies, Adverse Reactions, Alerts No Known Allergies Immunizations Given and Recorded Vaccine Date Status Refusal Reason tetanus/diphtheria/pertussis, acel(Tdap) 1 02/12/21 Given 1Result Comment: [facility]: [id number] Medications gabapentin 300 mg oral capsule 600 mg, 2, capsule, By Mouth, 4 times a day, # 240 capsule, Refills 6, Tot. Refills 6, Maintenance,03/04/22 11:46:00 EDT, Route to Pharmacy Electronically, [id number], Partial fill upon patient request if the [...] Team Personnel Name: Sunny Gunn MD Address: [address] [place] [id number]
--- OUTSIDE RECORDS SUMMARY | 2023-10-31 22:09 | XMS_ITS | Continuity of Care Document ---
Author Organization [facility] Aldo Adelfo lt Address [address] [place] [address]- Care Team Providers Care Chain Tender Name Role Phone Velia AGUIRRE, Sunny Quinones Primary Care Physician Encounter [facility] Date(s): 02/13/21 - 03/15/21 [facility] Adult [address] [place] [address]- Allergies, Adverse Reactions, Alerts Substance Reaction Severity Status NKA Active Immunizations Given and Recorded Vaccine Date Status Refusal Reason tetanus/diphtheria/pertussis, acel(Tdap) 1 02/12/21 Given 1Result Comment: [facility]: [id number] Problem List Condition Effective Dates Status Health Status Inform ant BMI 36.0-36.9,adult(Confirmed) Active Family history of myocardial infarction at age less than 60(Confirmed) Active Social History Social History Type Response Tobacco Use: 4 or less cigar ettes(less than 1/4 pack)/day in last 30 days. Sex
--- OUTSIDE RECORDS SUMMARY | 2023-10-31 22:10 | XMS_ITS | Continuity of Care Document ---
Author Organization [facility] Mesilla Adelfo lt Address [address] [place] [address]- Care Team Providers Care Bulk Intake Worker Name Role Phone Sunny Gunn MD Primary Care Physician [phone] [place] [facility] [place](s[place] 12/16/21 - 01/15/22 [facility] Miko Haynesley Adult [address] [place] [address]- Attending Physician: Admtr, [id number] Admitting Physician: Admtr, Ar8 Referring Physician: Admtr, Ar8 Allergies, Adverse Reactions, Alerts No Known Allergies Immunizations Given and Recorded Vaccine Date Status Refusal Reason tetanus/diphtheria/pertussis, acel(Tdap) 1 02/12/21 Given 1Result Comment: [facility]: [id number] Medications gabapentin 300 mg oral capsule 300 mg, 1, capsule, By Mouth, 3 times a day, # 90 capsule, Refills 0, Tot. Refills 0, Maintenance, 12/30/21 11:06:00 EDT, Route to Pharmacy Electronically, [id number], Partial fill upon patient request if the prescription is for a schedule... Start Date: 12/30/21 Stop Date: 01/29/22 Status: Ordered Medrol Dosepak 4 mg oral tablet 1 pack/packet, By Mouth, Daily, for 6 days, as directed on package labeling, # 21 tablet, 5 Refills, Acute 01/21/22 9:40:00 EDT, 12/16/21 9:40:00 EDT, [id number], Partial fill upon patient request if the [...]
[2023-10-31 22:16] VITALS: BP 120/101; PULSE 79; RESP 16; TEMP 36.4; O2SAT 98
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
[2023-10-31] MEDS: Acetaminophen 325 MG TABLET 975 MG PO (23:42)
[2023-10-31] MEDS: Bacitracin Oint 0.9 GM PACKET 1 APPL TOPICAL (23:43)
[2023-10-31] MEDS: Morphine Sulfate Immed Release 15 MG TABLET PO (23:43)
[2023-10-31] MEDS: Ibuprofen 400 MG TABLET PO (23:43)
[2023-11-01 00:52] VITALS: BP 115/82; PULSE 82; RESP 16; TEMP 36.4; O2SAT 99
== END 2023-11-01 00:53 | disposition home or self-care (01) ==
PROVIDERS: Emergency Provider Emergency Medicine Emergency Medical Services; PCP Internal Medicine
DX: T22.112A Burn of first degree of left forearm, initial encounter (principal); T23.192A Burn of first degree of multiple sites of left wrist and hand, initial encounter; T23.111A Burn of first degree of right thumb (nail), initial encounter; T22.212A Burn of second degree of left forearm, initial encounter; X06.2XXA Exposure to ignition of other clothing and apparel, initial encounter; Y93.89 Activity, other specified; Y92.9 Unspecified place or not applicable; Y99.0 Civilian activity done for income or pay
CPT/HCPCS: 16000; 99283; 99284

== ENCOUNTER 2024-02-12 05:42 | Inpatient (IN) | payer OTHER, SELFPAY ==
[2024-02-12 05:49] VITALS: BMI 20.3
[2024-02-12 06:21] VITALS: BP 140/78; PULSE 76; TEMP 36.6; O2SAT 100
[2024-02-12 06:23] LABS: Basophils Absolute Auto 0.1 X10*3/uL (0.0-0.2); Basophils Percent Auto 1.4 % (0-2); Eosinophils Absolute Auto 0.1 X10*3/uL (0.0-0.4); Eosinophils Percent Auto 1.8 % (0-4); Hematocrit 42.4 % (42.0-52.0); Hemoglobin 14.6 g/dl (14.0-18.0); Imm Gran Abs Auto 0.01 X10*3/uL (0.00-0.03); Imm Gran Pct Auto 0.2 % (0.0-0.4); Lymphocytes Absolute Auto 1.3 X10*3/uL (1.2-4.9); Lymphocytes Percent Auto 24.5 % (20-40); MANUAL DIFF FLAG NO; Mean Corpuscular HGB Conc 34.4 g/dl (31.0-36.0); Mean Corpuscular Hemoglobin 29.9 pg (27.0-33.0); Mean Corpuscular Volume 86.9 fL (80.0-98.0); Mean Platelet Volume 9.6 fL (9.4-12.4); Monocytes Absolute Auto 0.5 X10*3/uL (0.1-1.2); Monocytes Percent Auto 9.6 % (2-11); Neutrophils Absolute Auto 3.2 x10*3/uL (2.0-8.3); Neutrophils Percent Auto 62.5 % (45-73); Platelet Count 231 X10*3/uL (160-400); Red Blood Count 4.88 X10*6/uL (4.60-5.80); White Blood Count 5.1 X10*3/uL (4.8-10.8)
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
[2024-02-12 06:48] LABS: Alanine Aminotransferase 26 U/L (0-40); Albumin Level 4.7 g/dL (3.5-5.0); Alkaline Phosphatase 48 U/L (39-117); Anion Gap 11 (12-20); Aspartate Amino Transferase 22 U/L (5-37); Bilirubin Total 0.7 mg/dL (0.0-1.0); Blood Urea Nitrogen 15 mg/dL (9-16); Calcium 9.7 mg/dL (8.4-10.2); Carbon Dioxide 30 mmol/L (22-29); Chloride 106 mmol/L (96-108); Creatinine Clr Calc Pharmacy 91.8; Estimated Glomerular Filt Rate > 60; Ethanol < 10 mg/dL; Glucose Random 104 mg/dL (60-115); Potassium 3.8 mmol/L (3.3-5.1); Sodium 143 mmol/L (135-145); Total Protein 7.4 g/dL (6.5-8.0)
[2024-02-12 07:12] LABS: Amphetamine Screen Urine POSITIVE (Not Detect); Barbiturates, Urine Not Detected (Not Detect); Benzodiazepines Screen Urine Not Detected (Not Detect); Buprenorphine Scr Positive (Not Detect); Cannabinoid Screen Urine Not Detected (Not Detect); Cocaine Screen Urine Not Detected (Not Detect); Fentanyl, urine Not Detected (Not Detect); Methadone Screen, Urine Not Detected (Not Detect); Opiate Screen Urine Not Detected (Not Detect); Oxycodone Screen Urine Not Detected (Not Detect); Phencyclidine Screen Urine Not Detected (Not Detect)
--- NOTE | 2024-02-12 07:20 | PC.NURSE ---
Assumed care of patient at 0645, patient appears to be in no apparent distress, sitting in chair in common area, occasionally falling asleep. Patient offers no complaints to this RN. Continue plan of care for CARE team evaluation
--- NOTE | 2024-02-12 10:53 | PC.NURSE ---
waiting for meds from pharmacy
[2024-02-12] MEDS: Gabapentin 300 MG CAPSULE 600 MG PO (11:24)
[2024-02-12] MEDS: Amphetamine Mixed Salts 10 MG TABLET 30 MG PO (11:24)
[2024-02-12] MEDS: Nicotine Polacrilex 2 MG GUM BUCCAL (12:22)
--- NOTE | 2024-02-12 14:04 | ECG_ITS ---
Test Reason : QTC check Blood Pressure : / mmHG Vent. Rate : 050 BPM Atrial Rate : 050 BPM P-R Int : 162 ms QRS Dur : 102 ms QT Int : 428 ms P-R-T Axes : 082 082 066 degrees QTc Int : 390 ms Sinus bradycardia Normal ecg No previous ECGs available Referred By: Kisha Dey Electronically Signed By:Kendell Lane
--- NOTE | 2024-02-12 14:15 | PC.NURSE ---
Inpatient admissions called requesting EKG, order placed.
[2024-02-12 14:40] VITALS: BP 132/77; PULSE 53; RESP 16; TEMP 36.5; O2SAT 100
--- NOTE | 2024-02-12 14:57 | ECG_ITS ---
Test Reason : Check QTC Blood Pressure : / mmHG Vent. Rate : 048 BPM Atrial Rate : 048 BPM P-R Int : 158 ms QRS Dur : 110 ms QT Int : 448 ms P-R-T Axes : 078 086 058 degrees QTc Int : 400 ms Sinus bradycardia Otherwise normal ECG When compared with ECG of 12-FEB-2024 14:07, Criteria for Anterior infarct are no longer Present Referred By: Kisha Dey Electronically Signed By:Kendell Lane
--- NOTE | 2024-02-12 16:37 | PC.NURSE ---
RN to RN verbal report given to Arlene, all questions answered. Will come down to order picker patient once bed assignment is given.
--- NOTE | 2024-02-12 17:02 | PC.NURSE ---
Eve Hernandez at bedside speaking with patient about signing voluntary admission paperwork. Toya MASON and security waiting to bring patient upstairs.
[2024-02-12 17:35] VITALS: BP 136/82; PULSE 86; RESP 16; TEMP 36.9; O2SAT 96
[2024-02-12] MEDS: Nicotine 21 MG PATCH.TD24 TRANSDERMA (17:41)
[2024-02-12] MEDS: Nicotine Polacrilex 2 MG GUM 4 MG BUCCAL (17:42)
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
[2024-02-12 18:59] VITALS: BMI 21.2
[2024-02-13] MEDS: Nicotine Polacrilex 2 MG GUM 4 MG BUCCAL ×5 (03:29→21:12)
[2024-02-13 08:00] VITALS: BP 113/70; PULSE 69; TEMP 36.6; O2SAT 100
[2024-02-13 08:23] LABS: Alanine Aminotransferase 20 U/L (0-40); Alkaline Phosphatase 43 U/L (39-117); Anion Gap 10 (12-20); Aspartate Amino Transferase 15 U/L (5-37); Bilirubin Total 0.4 mg/dL (0.0-1.0); Blood Urea Nitrogen 13 mg/dL (9-16); Calcium 9.6 mg/dL (8.4-10.2); Carbon Dioxide 30 mmol/L (22-29); Chloride 106 mmol/L (96-108); Cholesterol 113 mg/dL (<200); Creatinine Clr Calc Pharmacy 129.3; Estimated Glomerular Filt Rate > 60; Glucose Fasting 116 mg/dL (60-99); HDL Cholesterol 52 mg/dL (>40); LDL Cholesterol Calculated 52 mg/dL (<100); Potassium 4.1 mmol/L (3.3-5.1); Sodium 142 mmol/L (135-145); Total Protein 6.5 g/dL (6.5-8.0); Triglycerides 48 mg/dL (<150)
[2024-02-13 08:34] LABS: Estimated Average Glucose 103 mg/dL; Hemoglobin A1c % 5.2 % (<6.0)
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
[2024-02-13] MEDS: Gabapentin 300 MG CAPSULE 600 MG PO ×3 (08:51→21:12)
[2024-02-13] MEDS: risperiDONE 1 MG TABLET PO ×2 (08:51→21:12)
[2024-02-13 08:52] LABS: Vitamin B12 846 pg/mL (200-900)
[2024-02-13] MEDS: Nicotine 21 MG PATCH.TD24 TRANSDERMA (08:52)
[2024-02-13] MEDS: hydrOXYzine HCL 25 MG TABLET PO (18:58)
[2024-02-13 19:50] VITALS: BP 133/86; PULSE 86; RESP 16; TEMP 36.7; O2SAT 100
[2024-02-14 08:00] VITALS: BP 103/56; PULSE 60; RESP 16; TEMP 36.9; O2SAT 99
[2024-02-14] MEDS: risperiDONE 1 MG TABLET PO ×2 (08:47→21:13)
[2024-02-14] MEDS: Gabapentin 300 MG CAPSULE 600 MG PO ×3 (08:47→21:13)
[2024-02-14] MEDS: Nicotine 21 MG PATCH.TD24 TRANSDERMA (08:48)
[2024-02-14] MEDS: Acetaminophen 325 MG TABLET 650 MG PO (10:03)
[2024-02-14] MEDS: Nicotine Polacrilex 2 MG GUM 4 MG BUCCAL (10:03)
[2024-02-14] MEDS: LORazepam 1 MG TABLET PO ×2 (15:08→21:13)
[2024-02-14] MEDS: OLANZapine ODT 10 MG TAB.RAPDIS TRANSLINGU (17:37)
[2024-02-14 20:00] VITALS: RESP 16
--- NOTE | 2024-02-14 21:24 | P.PNPSI_ITS ---
Subjective Subjective Date of Service: 02/14/24 Reason For Visit: SI Subjective Notes: Conditional Voluntary Interim History: Pt slept through the night. He has been mostly in his room. He continues to present as guarded, minimizing events leading to his admission. No SI/HI. No aggression towards self or others. taking risperidone, no side effects. Review of Systems Review of Systems Constitutional : No Fever, No Chills ENT/Mouth : No Ear Pain, No Nasal Congestion, No sore throat Eyes: No Eye Pain, No Swelling, No Redness Cardiovascular : No Chest Pain, No SOB Respiratory : No Cough, No Sputum, No Dyspnea Gastrointestinal : No Nausea, No Vomiting, No Diarrhea, No Hematochezia, No Melena Genitourinary : No Dysuria, No Urinary Frequency, No Hematuria Musculoskeletal : No Myalgias Skin : No Skin Lesions, No rash Neuro : No Weakness, No Numbness, No Paresthesias, No Dizziness, No Headache Psych : positive Anxiety, positive Depression, no SI/HI Heme/Lymph: No Lymphadenopathy Endocrine : No Polyuria, No Polydipsia All other systems reviewed and are negative Mental Status Exam Mental Status Exam Narrative: Appearance: wearing hospital gown, fair hygiene, poor eye contact, in NAD behavior: guarded and suspicious Psychomotor: no agitation or retardation noted Speech: clear, normal rate/rhythm/volume, spontaneous TP: mostly linear at times appears thought blocking TC: wanting to go home soon, worried about his job Mood: worried Affect: constricted affect SI: denies HI: denies VH/AH: appears internally preoccupied Delusions: paranoid delusions Insight/judgment: poor x 2. memory/cog: alert, oriented x 3. Diagnostics Vital Signs (24Hr): Vital Signs - 24 hr 02/14/24 08:00 02/14/24 20:00 Temperature 98.4 F Pulse Rate 60 Respiratory Rate 16 16 Blood Pressure 103/56 L Pulse Oximetry 99 Oxygen Delivery Method Room Air BMI result Body Mass Index 21.2 Labs 02/12/24 06:18 02/13/24 07:50 Labs: Laboratory Results - last 48 hr 02/13/24 07:50 Sodium 142 Potassium 4.1 Chloride 106 Carbon Dioxide 30 H Anion Gap 10 L BUN 13 Creatinine 0.89 Estim Creat Clear Calc 129.3 Estimated GFR > 60 Fasting Glucose 116 H Estimat Average Glucose 103 Hemoglobin A1c % 5.2 Calcium 9.6 Total Bilirubin 0.4 AST 15 ALT 20 Alkaline Phosphatase 43 Total Protein 6.5 Albumin 4.0 Triglycerides 48 Cholesterol 113 LDL Cholesterol, Calc 52 HDL Cholesterol 52 Vitamin B12 846 Medications Medications Current Medications Acetaminophen (Acetaminophen 325 Mg Tablet) 650 mg PO Q6H PRN PRN Reason: Headache/Pain Mild Scale (1-3) Last Admin: 02/14/24 10:03 Dose: 650 mg Al Hydroxide/Mg Hydroxide (Magnesium Hydrox/Alum Hydrox 30 Ml Oral.Susp) 30 ml PO Q6H PRN PRN Reason: Heartburn/Nausea Gabapentin (Gabapentin 300 Mg Capsule) 600 mg PO TID [facility] Last Admin: 02/14/24 21:13 Dose: 600 mg Hydroxyzine HCl (Hydroxyzine Hcl 25 Mg Tablet) 25 mg PO Q6H PRN PRN Reason: Anxiety Last Admin: 02/13/24 18:58 Dose: 25 mg Lorazepam (Lorazepam 1 Mg Tablet) 1 mg PO Q6H PRN PRN Reason: severe anxiety Last Admin: 02/14/24 21:13 Dose: 1 mg Magnesium Hydroxide (Milk Of Magnesia 30 Ml Oral.Susp) 30 ml PO DAILY PRN PRN Reason: Constipation Nicotine (Nicotine 21 Mg Patch.Td24) 21 mg TRANSDERMA DAILY [facility] Last Admin: 02/14/24 08:48 Dose: 21 mg Nicotine Polacrilex (Nicotine Polacrilex 2 Mg Gum) 4 mg BUCCAL Q1H PRN PRN Reason: Nicotine Cravings Last Admin: 02/14/24 10:03 Dose: 4 mg Olanzapine (Olanzapine Odt 10 Mg Tab.Rapdis) 10 mg TRANSLINGU Q6H PRN PRN Reason: agitation Last Admin: 02/14/24 17:37 Dose: 10 mg Risperidone (Risperidone 1 Mg Tablet) 1 mg PO BID [facility] Last Admin: 02/14/24 21:13 Dose: 1 mg Trazodone HCl (Trazodone Hcl 50 Mg Tablet) 50 mg PO BEDTIME MRX1 PRN PRN Reason: Insomnia Allergies Allergies Allergy/AdvReac Type Severity Reaction Status Date / Time apple AdvReac Unknown Verified 02/12/24 05:53 carrot AdvReac Unknown Verified 02/12/24 05:53 Assessment & Plan Assessment & Plan (1) Psychosis: Status: Acute Code(s): F29 - Unspecified psychosis not due to a substance or known physiological condition Plan Mr. Moss is a 33 year-old male who was brought via EMS on sect 12[address] by [place] police as pt presenting with paranoid delusions, calling them 3 times this week reporting someone had entered his apartment. Per family, pt has barricaded himself, construct some weapons to protect himself, cut open his mattress thinking something was inserted there, and per friend he tried to hurt himself bycarbon monoxide poisoning in his garage. Pt presents as paranoid and guarded. He denies SI/HI or any recent attempt to hurt himself. He is going to through divorce with of 9 years. We discussed risks, benefits and alternative treatment options. Pt agreed to hold adderall due to psychosis and start risperidone. 1. continue risperidone. obtain collateral information. Reason for continued inpatient stay Substantial Risk for: inability to function Time Spent With Patient Time: Total time managing care of this patient today ____ minutes.
[2024-02-15 08:00] VITALS: BP 139/87; PULSE 61; RESP 16; TEMP 36.4; O2SAT 100
[2024-02-15] MEDS: Gabapentin 300 MG CAPSULE 600 MG PO ×3 (08:58→20:22)
[2024-02-15] MEDS: Nicotine 21 MG PATCH.TD24 TRANSDERMA (08:58)
[2024-02-15] MEDS: risperiDONE 1 MG TABLET PO ×2 (08:58→20:22)
[2024-02-15] MEDS: Dextroamphetamine/Amphetamine XR 10 MG CAP.ER.24H 30 MG PO (11:22)
[2024-02-15] MEDS: Buprenorphine/Naloxone 2/0.5mg FILM 0.5 FILM SUBLINGUAL (11:22)
--- NOTE | 2024-02-15 15:01 | P.PNPSI_ITS ---
Subjective Subjective Date of Service: 02/15/24 Reason For Visit: SI Interim History: c/o not being able to think, having trouble getting responses out, apologizing for his inability to provide adequate answers. believes it is because he has not had his stimulant today. also no suboxone. agrees to get some suboxone today and some adderall and see how he is feeling. plan is executed, pt presents later int he afternoon as better able to respond/engage with MD, states he is feeling very much better. per staff, taking meds, guarded. withdrawn. met with yesterday. back pain. slept 8+ hours. Mental Status Exam Mental Status Exam Narrative: Appearance: wearing street clothes, fair hygiene, poor eye contact, in NAD behavior: guarded Psychomotor: no agitation or retardation noted Speech: clear, normal rate/rhythm/volume, spontaneous TP: mostly linear at times appears thought blocking TC: wanting to go home soon, worried about his job Mood: worried Affect: constricted affect SI: denies HI: denies VH/AH: appears internally preoccupied Delusions: paranoid delusions Insight/judgment: poor x 2. memory/cog: alert, oriented x 3. Diagnostics Vital Signs (24Hr): Vital Signs - 24 hr 02/14/24 20:00 02/15/24 08:00 Temperature 97.5 F Pulse Rate 61 Respiratory Rate 16 16 Blood Pressure 139/87 Pulse Oximetry 100 Oxygen Delivery Method Room Air BMI result Body Mass Index 21.2 Labs 02/12/24 06:18 02/13/24 07:50 Medications Medications Current Medications Acetaminophen (Acetaminophen 325 Mg Tablet) 650 mg PO Q6H PRN PRN Reason: Headache/Pain Mild Scale (1-3) Last Admin: 02/14/24 10:03 Dose: 650 mg Al Hydroxide/Mg Hydroxide (Magnesium Hydrox/Alum Hydrox 30 Ml Oral.Susp) 30 ml PO Q6H PRN PRN Reason: Heartburn/Nausea Buprenorphine/Naloxone (Buprenorphine/Naloxone 2/0.5mg Film) 0.5 film SUBLINGUAL DAILY [facility] Last Admin: 02/15/24 11:22 Dose: 0.5 film Gabapentin (Gabapentin 300 Mg Capsule) 600 mg PO TID [facility] Last Admin: 02/15/24 08:58 Dose: 600 mg Hydroxyzine HCl (Hydroxyzine Hcl 25 Mg Tablet) 25 mg PO Q6H PRN PRN Reason: Anxiety Last Admin: 02/13/24 18:58 Dose: 25 mg Lorazepam (Lorazepam 1 Mg Tablet) 1 mg PO Q6H PRN PRN Reason: severe anxiety Last Admin: 02/14/24 21:13 Dose: 1 mg Magnesium Hydroxide (Milk Of Magnesia 30 Ml Oral.Susp) 30 ml PO DAILY PRN PRN Reason: Constipation Nicotine (Nicotine 21 Mg Patch.Td24) 21 mg TRANSDERMA DAILY [facility] Last Admin: 02/15/24 08:58 Dose: 21 mg Nicotine Polacrilex (Nicotine Polacrilex 2 Mg Gum) 4 mg BUCCAL Q1H PRN PRN Reason: Nicotine Cravings Last Admin: 02/14/24 10:03 Dose: 4 mg Olanzapine (Olanzapine Odt 10 Mg Tab.Rapdis) 10 mg TRANSLINGU Q6H PRN PRN Reason: agitation Last Admin: 02/14/24 17:37 Dose: 10 mg Risperidone (Risperidone 1 Mg Tablet) 1 mg PO BID [facility] Last Admin: 02/15/24 08:58 Dose: 1 mg Trazodone HCl (Trazodone Hcl 50 Mg Tablet) 50 mg PO BEDTIME MRX1 PRN PRN Reason: Insomnia Allergies Allergies Allergy/AdvReac Type Severity Reaction Status Date / Time apple AdvReac Unknown Verified 02/12/24 05:53 carrot AdvReac Unknown Verified 02/12/24 05:53 Assessment & Plan Assessment & Plan (1) Psychosis: Status: Acute Code(s): F29 - Unspecified psychosis not due to a substance or known physiological condition Plan Mr. Moss is a 33 year-old male who was brought via EMS on sect 12a by [place] police as pt presenting with paranoid delusions, calling them 3 times this week reporting someone had entered his apartment. Per family, pt has barricaded himself, construct some weapons to protect himself, cut open his mattress thinking something was inserted there, and per friend he tried to hurt himself by carbon monoxide poisoning in his garage. Pt presents as paranoid and guarded. He denies SI/HI or any recent attempt to hurt himself. He is going to through divorce with of 9 years. We discussed risks, benefits and alternative treatment options. Pt agreed to hold adderall due to psychosis and start risperidone. 1. continue risperidone. obtain collateral information. 02/14: restart suboxone 1 mg daily. restart adderall XR 30 mg daily. pt perked up after meds. denies Sx, denies Hx as described in admission note. Reason for continued inpatient stay Substantial Risk for: harm to self, harm to others, inability to function and rapid decompensation Time Spent With Patient Time: Total time managing care of this patient today __25__ minutes.
[2024-02-15] MEDS: Nicotine Polacrilex 2 MG GUM 4 MG BUCCAL ×2 (15:05→18:35)
[2024-02-15 20:00] VITALS: RESP 16
[2024-02-15] MEDS: LORazepam 1 MG TABLET PO (20:23)
[2024-02-15] MEDS: traZODone HCL 50 MG TABLET PO (20:23)
[2024-02-16 08:00] VITALS: BP 123/64; PULSE 65; RESP 16; TEMP 36.9; O2SAT 100
[2024-02-16] MEDS: Nicotine 21 MG PATCH.TD24 TRANSDERMA (08:32)
[2024-02-16] MEDS: risperiDONE 1 MG TABLET PO (08:33)
[2024-02-16] MEDS: Gabapentin 300 MG CAPSULE 600 MG PO ×3 (08:33→21:32)
[2024-02-16] MEDS: Buprenorphine/Naloxone 2/0.5mg FILM 0.5 FILM SUBLINGUAL (08:34)
[2024-02-16] MEDS: Acetaminophen 325 MG TABLET 650 MG PO (09:25)
[2024-02-16] MEDS: Dextroamphetamine/Amphetamine XR 10 MG CAP.ER.24H 30 MG PO (11:20)
[2024-02-16] MEDS: Nicotine Polacrilex 2 MG GUM 4 MG BUCCAL ×5 (12:32→23:04)
--- NOTE | 2024-02-16 12:34 | HO.PSYCHPN ---
Subjective Subjective Date of Service: 02/16/24 Reason For Visit: SI Interim History: calm, cooperative. feeling well, a bit tired. stimulant not yet ordered this morning. reports mood is great, slept well. denies SI/HI/AVH. per staff, 3-day up . taking meds. isolative. no depression. flat, withdrawn. guarded. slept 8 hours. Mental Status Exam Mental Status Exam Narrative: Appearance: wearing street clothes, fair hygiene, fair eye contact, in NAD behavior: guarded Psychomotor: no agitation or retardation noted Speech: clear, normal rate/rhythm/volume, spontaneous TP: linear, logical TC: wanting to go home soon, grateful Mood: great Affect: constricted affect SI: denies HI: denies VH/AH: denies Delusions: none expressed Insight/judgment: poor x 2. memory/cog: alert, oriented x 3. Diagnostics Vital Signs (24Hr): Vital Signs - 24 hr 02/15/24 20:00 02/16/24 08:00 Temperature 98.4 F Pulse Rate 65 Respiratory Rate 16 16 Blood Pressure 123/64 Pulse Oximetry 100 Oxygen Delivery Method Room Air BMI result Body Mass Index 21.2 Labs 02/12/24 06:18 02/13/24 07:50 Medications Medications Current Medications Acetaminophen (Acetaminophen 325 Mg Tablet) 650 mg PO Q6H PRN PRN Reason: Headache/Pain Mild Scale (1-3) Last Admin: 02/16/24 09:25 Dose: 650 mg Al Hydroxide/Mg Hydroxide (Magnesium Hydrox/Alum Hydrox 30 Ml Oral.Susp) 30 ml PO Q6H PRN PRN Reason: Heartburn/Nausea Amphetamine/Dextroamphetamine (Dextroamphetamine/Amphetamine Xr 10 Mg Cap.Er.24h) 30 mg PO DAILY [facility] Last Admin: 02/16/24 11:20 Dose: 30 mg Buprenorphine/Naloxone (Buprenorphine/Naloxone 2/0.5mg Film) 0.5 film SUBLINGUAL DAILY [facility] Last Admin: 02/16/24 08:34 Dose: 0.5 film Gabapentin (Gabapentin 300 Mg Capsule) 600 mg PO TID [facility] Last Admin: 02/16/24 08:33 Dose: 600 mg Hydroxyzine HCl (Hydroxyzine Hcl 25 Mg Tablet) 25 mg PO Q6H PRN PRN Reason: Anxiety Last Admin: 02/13/24 18:58 Dose: 25 mg Lorazepam (Lorazepam 1 Mg Tablet) 1 mg PO Q6H PRN PRN Reason: severe anxiety Last Admin: 02/15/24 20:23 Dose: 1 mg Magnesium Hydroxide (Milk Of Magnesia 30 Ml Oral.Susp) 30 ml PO DAILY PRN PRN Reason: Constipation Nicotine (Nicotine 21 Mg Patch.Td24) 21 mg TRANSDERMA DAILY [facility] Last Admin: 02/16/24 08:32 Dose: 21 mg Nicotine Polacrilex (Nicotine Polacrilex 2 Mg Gum) 4 mg BUCCAL Q1H PRN PRN Reason: Nicotine Cravings Last Admin: 02/16/24 12:32 Dose: 4 mg Olanzapine (Olanzapine Odt 10 Mg Tab.Rapdis) 10 mg TRANSLINGU Q6H PRN PRN Reason: agitation Last Admin: 02/14/24 17:37 Dose: 10 mg Risperidone (Risperidone 2 Mg Tablet) 2 mg PO BEDTIME [facility] Trazodone HCl (Trazodone Hcl 50 Mg Tablet) 50 mg PO BEDTIME MRX1 PRN PRN Reason: Insomnia Last Admin: 02/15/24 20:23 Dose: 50 mg Allergies Allergies Allergy/AdvReac Type Severity Reaction Status Date / Time apple AdvReac Unknown Verified 02/12/24 05:53 carrot AdvReac Unknown Verified 02/12/24 05:53 Assessment & Plan Assessment & Plan (1) Psychosis: Status: Acute Code(s): F29 - Unspecified psychosis not due to a substance or known physiological condition Plan Mr. Moss is a 33 year-old male who was brought via EMS on sect 12a by [place] police as pt presenting with paranoid delusions, calling them 3 times this week reporting someone had entered his apartment. Per family, pt has barricaded himself, construct some weapons to protect himself, cut open his mattress thinking something was inserted there, and per friend he tried to hurt himself by carbon monoxide poisoning in his garage. Pt presents as paranoid and guarded. He denies SI/HI or any recent attempt to hurt himself. He is going to through divorce with of 9 years. We discussed risks, benefits and alternative treatment options. Pt agreed to hold adderall due to psychosis and start risperidone. 1. continue risperidone. obtain collateral information. 02/14: restart suboxone 1 mg daily. restart adderall XR 30 mg daily. pt perked up after meds. denies Sx, denies Hx as described in admission note. 02/15: remains improved. no RIS, does not appear distracted or thought-blocked. 3-day up . adderall scripts for 30 mg daily XR and 30 mg daily IR verified with [facility]. will continue on 30 of XR only. no psych Hx, no hosps, h/o addiction, clear use of stimulants supports substance-induced psychotic episode. Reason for continued inpatient stay Substantial Risk for: rapid decompensation Time Spent With Patient Time: Total time managing care of this patient today __35__ minutes.
[2024-02-16] MEDS: LORazepam 1 MG TABLET PO (17:53)
[2024-02-16 20:00] VITALS: BP 150/83; PULSE 98; RESP 16; TEMP 36.9; O2SAT 100
[2024-02-16] MEDS: risperiDONE 2 MG TABLET PO (21:31)
[2024-02-16] MEDS: traZODone HCL 50 MG TABLET PO (22:56)
[2024-02-17 07:45] VITALS: BP 119/67; PULSE 77; RESP 18; TEMP 36.1; O2SAT 100
[2024-02-17] MEDS: Gabapentin 300 MG CAPSULE 600 MG PO ×3 (09:12→20:17)
[2024-02-17] MEDS: Dextroamphetamine/Amphetamine XR 10 MG CAP.ER.24H 30 MG PO (09:12)
[2024-02-17] MEDS: Nicotine 21 MG PATCH.TD24 TRANSDERMA (09:13)
[2024-02-17] MEDS: Buprenorphine/Naloxone 2/0.5mg FILM 0.5 FILM SUBLINGUAL (09:14)
[2024-02-17] MEDS: Nicotine Polacrilex 2 MG GUM 4 MG BUCCAL ×7 (09:24→19:56)
--- NOTE | 2024-02-17 12:37 | PM.PSYDC ---
DS: Providers Provider Date of Service: 02/17/24 Date of admission: 02/12/24 16:31 Primary care physician: Unknown Physician DS: Diagnosis Discharge Diagnosis (1) Psychosis: Status: Acute DS: Medications Discharge Medications Home Medications: Previous Rx's ?Medication ?Instructions ?Recorded buprenorphine 2 mg-naloxone 0.5 mg 0.5 film sublingual DAILY 30 days 02/17/24 sublingual film (Suboxone) #15 ea dextroamphetamine-amphetamine ER 30 mg (3 x 10 mg) PO DAILY 30 days 02/17/24 10 mg 24hr capsule,extend release #90 caps (Adderall XR) gabapentin 300 mg capsule 600 mg (2 x 300 mg) PO TID 30 days 02/17/24 #180 caps hydroxyzine HCl 25 mg tablet 25 mg PO Q6H PRN Anxiety 30 days 02/17/24 #30 tabs naloxone 4 mg/actuation nasal 4 mg intranasal Q2M PRN opioid 02/17/24 spray (Narcan) overdose 1 day #2 ea nicotine (polacrilex) 2 mg gum 4 mg buccal Q2H PRN Nicotine 02/17/24 Cravings 30 days #120 ea nicotine 21 mg/24 hr daily 21 mg transdermal DAILY 28 days 02/17/24 transdermal patch #28 ea risperidone 2 mg tablet 2 mg PO BEDTIME 30 days #30 tabs 02/17/24 trazodone 50 mg tablet 50 mg PO BEDTIME PRN Insomnia 30 02/17/24 days #30 tabs Mental Status Exam Mental Status Exam Narrative: Appearance: wearing street clothes, good hygiene, good eye contact, in NAD behavior: guarded, calm Psychomotor: no agitation or retardation noted Speech: clear, normal rate/rhythm/volume, spontaneous TP: linear, logical TC: wanting to go home soon, grateful Mood: positive Affect: constricted affect SI: denies HI: denies VH/AH: denies Delusions: none expressed Insight/judgment: poor x 2. memory/cog: alert, oriented x 3. Data Data Completed and Pending Completed studies during hospitalization [Text1]: 02/12/24 02/12/24 02/13/24 06:18 06:54 07:50 WBC 5.1 RBC 4.88 Hgb 14.6 Hct 42.4 MCV 86.9 MCH 29.9 MCHC 34.4 RDW 13.0 Plt Count 231 MPV 9.6 Immature Gran % (Auto) 0.2 Neut % (Auto) 62.5 Lymph % (Auto) 24.5 [place] % (Auto) 9.6 Eos % (Auto) 1.8 Baso % (Auto) 1.4 Lymph # (Auto) 1.3 [place] # (Auto) 0.5 Eos # (Auto) 0.1 Baso # (Auto) 0.1 Abs Immat Gran (auto) 0.01 Absolute Neuts (auto) 3.2 Absolute Nucleated RBC 0.000 Nucleated RBC % (auto) 0.0 Sodium 143 142 Potassium 3.8 4.1 Chloride 106 106 Carbon Dioxide 30 H 30 H Anion Gap 11 L 10 L BUN 15 13 Creatinine 1.08 0.89 Estim Creat Clear Calc 91.8 129.3 Estimated GFR > 60 > 60 Random Glucose 104 Fasting Glucose 116 H Estimat Average Glucose 103 Hemoglobin A1c % 5.2 Calcium 9.7 9.6 Total Bilirubin 0.7 0.4 AST 22 15 ALT 26 20 Alkaline Phosphatase 48 43 Total Protein 7.4 6.5 Albumin 4.7 4.0 Triglycerides 48 Cholesterol 113 LDL Cholesterol, Calc 52 HDL Cholesterol 52 Vitamin B12 846 Urine Opiates Screen Not Detected Ur Buprenorphine Scrn Positive H Ur Oxycodone Screen Not Detected Urine Methadone Screen Not Detected Urine Fentanyl Screen Not Detected Ur Barbiturates Screen Not Detected Ur Phencyclidine Scrn Not Detected Ur Amphetamines Screen POSITIVE H U Benzodiazepines Scrn Not Detected Urine Cocaine Screen Not Detected U Marijuana (THC) Screen Not Detected Ethyl Alcohol < 10 DS: Summary Hospital Course Hospital Course: per 02/12 admission note: Mr. Moss is a 33 year-old male who was brought via EMS on [address] by [employer] police due to pt presenting with increase paranoid delusions, calling police at least 3 times this week reporting that he believes there is someone in his apartment. Per family, pt has been presenting increasingly more paranoid,cut open his mattress thinking someone had entered his apartment and inserted something there and thinking that cars passing are out to get him. He also has placed furniture blocking door in his apartment. He apparently in an attempt to call police from his apartment as he saw them coming grabbed a chainsaw and broke one of the windows. Per friend, pt tried ending his life few days ago and presented more hypervigilant and agitated. He recently from of 9 years. No prior episodes of psychosis or psychiatric admission. He had been treated for ADHD and currently is on adderall. Utox positive for amphetamines. He is also on buprenorphine for opioid use disorder in remission for more than 7 years. On the unit, pt presents someone guarded. He appears less forthcoming in terms of paranoid delusions. He reports friend also have heard noises that are suspicious, which is not the case based on collateral information. He reports he has been out of work for some weeks and worries that he may lose his job. He denies SI/HI. He also denies that he attempted to hurt himself recently, stating that it was a misunderstanding. His attention is poor and he appears internally preoccupied. He reports poor sleep. Medical Evaluation Reviewed: Yes [facility] Medical History No pertinent past medical history Family History: denies Social History: Pt going through divorce with of 9 years. He has a son who is 6 years old with another woman but states he does not have contact with him. 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 Substance History: reports opioid hx in remission for more than 9 years on suboxone Trauma History: none reported Precis: Mr. Moss is a 33 year-old male who was brought via EMS on [address] by [place] police as pt presenting with paranoid delusions, calling them 3 times this week reporting someone had entered his apartment. Per family, pt has barricaded himself, construct some weapons to protect himself, cut open his mattress thinking something was inserted there, and per friend he tried to hurt himself by carbon monoxide poisoning in his garage. Pt presents as paranoid and guarded. He denies SI/HI or any recent attempt to hurt himself. He is going to through divorce with of 9 years. We discussed risks, benefits and alternative treatment options. Pt agreed to hold adderall due to psychosis and start risperidone. 02/12: continue risperidone. obtain collateral information. 02/14: restart suboxone 1 mg daily. restart adderall XR 30 mg daily. pt perked up after meds. denies Sx, denies Hx as described in admission note. 02/15: remains improved. no RIS, does not appear distracted or thought-blocked. 3-day up . adderall scripts for 30 mg daily XR and 30 mg daily IR verified with arcenio gan. will continue on 30 of XR only. no psych Hx, no hosps, h/o addiction, clear use of stimulants supports substance-induced psychotic episode. 02/16: stable. safe. meds reviewed, reconciled, prescribed. discharge tomorrow as per plan. 02/17: stable. discharged as per plan. Time Spent with Patient Time attestation: Total time managing care of this patient today __35__ minutes. Discharge Plan Discharge Anticipated Discharge Date/Time: 02/18/24 10:00 Patient Disposition: Home, Self-Care Discharge Diagnosis: Substance-Induced Psychosis Referrals: Eloisa Conley (Therapy) [Other] - 02/22/24 10:00 am (IN OFFICE APPOINTMENT) Lashay Hansen (Psychiatry) [Other] - 03/23/24 11:00 am (TELEHEALTH APPOINTMENT) [facility] [Provider Group] - 1 Week ([facility] has been added to patients charts. Please call [phone] for follow up appt.) Discharge Medications: New nicotine 21 mg/24 hr Patch 24 Hour 21 mg transdermal DAILY 28 Days Qty: 28 0RF nicotine (polacrilex) 2 mg Gum 4 mg buccal Q2H PRN (Reason: Nicotine Cravings) 30 Days Qty: 120 2RF buprenorphine-naloxone [Suboxone] 2-0.5 mg Film 0.5 film sublingual DAILY 30 Days Qty: 15 0RF risperidone 2 mg Tablet 2 mg PO BEDTIME 30 Days Qty: 30 0RF hydroxyzine HCl 25 mg Tablet 25 mg PO Q6H PRN (Reason: Anxiety) 30 Days Qty: 30 0RF trazodone 50 mg Tablet 50 mg PO BEDTIME PRN (Reason: Insomnia) 30 Days Qty: 30 0RF naloxone [Narcan] 4 mg/actuation spray,non-aerosol 4 mg intranasal Q2M PRN (Reason: opioid overdose) 1 Days Qty: 2 0RF Rx Instructions: spray 1 dose into ONE nostril; alternate nostrils w each dose until help arrives dextroamphetamine-amphetamine [Adderall XR] 30 mg capsule,extended release 24hr 30 mg PO DAILY 15 Days Qty: 15 0RF Rx Instructions: Partial Fill upon patient request. Continued gabapentin 300 mg capsule 600 mg PO TID 30 Days Qty: 180 0RF Discontinued dextroamphetamine-amphetamine 30 mg tablet 1 tab PO DAILY Discharge Orders: Discharge Order (Routine); Ordered 02/18/24 Ordered By: Evert Yuen Diet: Advance to usual diet Activity on Discharge: As tolerated Stand Alone Forms: Patient Portal Discharge page, Community Support Print Language: Israeli Care Plan Goals: remain safe, stable, and sober in the outpatient treatment setting Health Concerns: none Plan of Treatment: take medications as prescribed, attend appointments as scheduled Assessment: not at imminent risk of harm to self or others Discharge Date/Time: 02/18/24 10:06
[2024-02-17] MEDS: LORazepam 1 MG TABLET PO (13:35)
[2024-02-17] MEDS: hydrOXYzine HCL 25 MG TABLET PO (15:48)
[2024-02-17 20:00] VITALS: BP 146/76; PULSE 100; RESP 16; TEMP 36.8; O2SAT 100
[2024-02-17] MEDS: risperiDONE 2 MG TABLET PO (20:20)
[2024-02-17] MEDS: traZODone HCL 50 MG TABLET PO (20:22)
[2024-02-18 07:00] VITALS: BMI 23.9
[2024-02-18 07:44] VITALS: BP 148/77; PULSE 89; RESP 16; TEMP 36.1; O2SAT 100
[2024-02-18] MEDS: Buprenorphine/Naloxone 2/0.5mg FILM 0.5 FILM SUBLINGUAL (08:22)
[2024-02-18] MEDS: Nicotine 21 MG PATCH.TD24 TRANSDERMA (08:23)
[2024-02-18] MEDS: Dextroamphetamine/Amphetamine XR 10 MG CAP.ER.24H 30 MG PO (08:24)
[2024-02-18] MEDS: LORazepam 1 MG TABLET PO (08:24)
[2024-02-18] MEDS: Nicotine Polacrilex 2 MG GUM 4 MG BUCCAL (08:24)
[2024-02-18] MEDS: Gabapentin 300 MG CAPSULE 600 MG PO (08:24)
== END 2024-02-18 10:06 | disposition home or self-care (01) | DRG 897 ==
LOC: HO.ED 07:14 → HO.PADLT16 16:43
PROVIDERS: Admitting Provider Social Worker; Emergency Provider Emergency Medicine; Visit Provider Psychiatry & Neurology Psychiatry
DX: F15.950 Other stimulant use, unspecified with stimulant-induced psychotic disorder with delusions (principal); F11.20 Opioid dependence, uncomplicated; F17.210 Nicotine dependence, cigarettes, uncomplicated; Z71.6 Tobacco abuse counseling; Z91.51 Personal history of suicidal behavior; Z79.899 Other long term (current) drug therapy
CPT/HCPCS: 36415; 80053; 80061; 80307; 82607; 83036; 85025; 93005; 99285; S9485

== ENCOUNTER → 2024-02-12 14:04 | Outpatient (BNV) | payer OTHER, SELFPAY | PROVIDERS: Admitting Provider Social Worker; Emergency Provider Emergency Medicine; Visit Provider Internal Medicine Cardiovascular Disease | DX: R00.1 Bradycardia, unspecified (principal) | CPT/HCPCS: 93010 ==

== ENCOUNTER → 2024-02-12 16:31 | Outpatient (BNV) | payer OTHER, SELFPAY | PROVIDERS: Admitting Provider Social Worker; Emergency Provider Emergency Medicine; Visit Provider Social Worker | DX: F29 Unspecified psychosis not due to a substance or known physiological condition (principal) | CPT/HCPCS: 90792; 99232; 99239 ==

== ENCOUNTER 2024-04-13 18:15 | Emergency (ER) | payer OTHER, SELFPAY ==
[2024-04-13 18:16] VITALS: BP 138/75; PULSE 90; RESP 20; TEMP 36.7; O2SAT 100; BMI 33.0
--- NOTE | 2024-04-13 18:18 | ED_ITS ---
HPI - General Adult General Chief complaint: Allergic Reaction Stated complaint: allergic reaction, tongue swelling, diff breathion Time Seen by Provider: 04/13/24 18:24 Source: patient Mode of arrival: ambulatory Limitations: no limitations History of Present Illness HPI narrative: This is a 33-year-old man with a past medical history of paranoid delusions who presents for evaluation of allergic reaction. Patient states that about an hour ago he was smoking vape and begin have difficulty breathing and tongue swelling. Patient reports that he vomited. He states no rash or pruritus. He states no chest pain. He states previous allergies to dogs, apples and carrots. He states no history of anaphylaxis. He states difficulty swallowing. He states pain in his jaw as well. Related Data Previous Rx's ?Medication ?Instructions ?Recorded buprenorphine 2 mg-naloxone 0.5 mg 0.5 film sublingual DAILY 30 days 02/17/24 sublingual film (Suboxone) #15 ea dextroamphetamine-amphetamine ER 30 mg PO DAILY 15 days #15 caps 02/17/24 30 mg 24hr capsule,extend release (Adderall XR) gabapentin 300 mg capsule 600 mg (2 x 300 mg) PO TID 30 days 02/17/24 #180 caps hydroxyzine HCl 25 mg tablet 25 mg PO Q6H PRN Anxiety 30 days 02/17/24 #30 tabs naloxone 4 mg/actuation nasal 4 mg intranasal Q2M PRN opioid 02/17/24 spray (Narcan) overdose 1 day #2 ea nicotine (polacrilex) 2 mg gum 4 mg buccal Q2H PRN Nicotine 02/17/24 Cravings 30 days #120 ea nicotine 21 mg/24 hr daily 21 mg transdermal DAILY 28 days 02/17/24 transdermal patch #28 ea risperidone 2 mg tablet 2 mg PO BEDTIME 30 days #30 tabs 02/17/24 trazodone 50 mg tablet 50 mg PO BEDTIME PRN Insomnia 30 02/17/24 days #30 tabs epinephrine 0.3 mg/0.3 mL 0.3 mg (0.3 mL) IM Q10M PRN 04/13/24 injection, auto-injector anaphylaxis #2 ea Allergies Allergy/AdvReac Type Severity Reaction Status Date / Time dog dander [dogs] Allergy Itching Verified 04/13/24 18:19 apple AdvReac Unknown Verified 02/12/24 05:53 carrot AdvReac Unknown Verified 02/12/24 05:53 Review of Systems Review of Systems: ROS as per HPI [facility] Past Medical History Medical History No pertinent past medical history Social History Social History (Updated 02/12/24 @ 07:04 by Kisha Dey DO) Household Members: Family Household Members Other:: grandmother ([phone]) Housing: House Do you presently have visiting nurse or other home services: No Unable to assess alcohol history related to: Refusing to respond Alcohol intake: former Patient Tobacco Use Status: Current everyday Tobacco user Tobacco use type: Cigarette Cigarette Packs Per Day: 1 Cigarettes Per Day: 20.0 Years Smoked: 19 Smoked in Last 30 Days: Yes Second Hand Smoke Exposure: No Substance Use Type: Opiates Advance Directives: No Advance Directives Information Provided: No service: No Sexual orientation: Straight/Heterosexual Physical Exam ED Vital Signs: Vital Signs - 24 hr 04/13/24 18:16 04/13/24 18:26 Temperature 98.1 F Pulse Rate 90 84 Respiratory Rate 20 Blood Pressure 138/75 159/66 H Pulse Oximetry 100 Oxygen Delivery Method Room Air BMI result Body Mass Index 33.0 Gen: NAD, AOx3, tolerating secretions HEENT: NCAT, EOMI, normal conjunctiva, uvula midline without edema CV: RRR Pulm: CTAB, no increased work of breathing, no wheezes GI: Soft, NTND, no rebound, guarding or rigidity Neuro: Grossly non focal Skin: Warm, dry, no urticaria Course Course Course Narrative: This is a rapid medical exam performed by Asael Christopher NP: Additional HPI, ROS, PE not included below will be deferred to primary provider. Patient is a 33-year-old male presenting to the ED with complaint of tongue swelling and difficulty breathing for the past hour after using a new vape pen (tobacco). Did not take any medications [employer]. Tongue swelling noted in triage with expiratory wheezing, no rash. Plan: medications ordered and charge notified, patient brought directly to main ED Medications Administered Discontinued Medications Generic Name Dose Route Start Last Admin Trade Name Freq PRN Reason Stop Dose Admin Diphenhydramine HCl 25 mg 04/13/24 18:18 04/13/24 18:31 Diphenhydramine Hcl 50 Mg/Ml Vial IVPUSH 04/13/24 18:19 25 mg ONCE ONE Administration Epinephrine 0.3 mg 04/13/24 18:18 04/13/24 18:26 Epinephrine 1 Mg/Ml Vial IM 04/13/24 18:19 0.3 mg STAT STA Administration Famotidine 20 mg 04/13/24 18:18 04/13/24 18:31 Famotidine/Pf 20 Mg/2 Ml Vial IVPUSH 04/13/24 18:19 20 mg ONCE ONE Administration Sodium Chloride 1,000 mls @ 999 mls/hr 04/13/24 18:30 04/13/24 18:34 Ns IV 04/13/24 19:30 999 mls/hr .Q1H1M OMKAR Administration Medical Decision Making Medical Decision Making MDM Narrative: Differential diagnosis includes, but is not limited to allergic reaction, anaphylaxis, angioedema. Patient is afebrile and hemodynamically stable on room air. Exam is benign and reassuring. I do not appreciate any significant lingual edema. Regardless, given multiorgan involvement with report of nausea, vomiting my dysphagia and difficulty breathing we will treat empirically with epinephrine. Patient was also provided with supportive care with diphenhydramine and famotidine. I independently reviewed and interpreted the patient's EKG, which is benign and reassuring. And consider obtaining a chest x-ray given report of difficulty breathing, but dyspnea resolves and the patient's lungs are clear to auscultation side very low clinical suspicion for any acute radiographically significant cardiopulmonary process such as a consolidation, or pleural effusion or pneumothorax. On re-examination, patient is well-appearing and in no acute distress. ?Patient states symptoms have resolved. ?There is no indication for further emergent evaluation in this otherwise well-appearing patient as above. ?Patient is provided written and verbal instructions, prescription for EpiPen, educational materials, recommendations for outpatient follow-up, strict return precautions and teach back is performed. ?Patient states understanding and agreement with plan of care. ?Patient is discharged home in stable and improved condition. 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 Admission/Observation Consideration of admission/observation: Escalation of care including admission/observation considered Independent Interpretation I performed an independent interpretation of an: EKG Interpretation: I independently reviewed and interpreted patient's EKG, which demonstrates a sinus rhythm at 89 beats per minute, DE 164, QRS 108, QTC 440, no STEMI Discharge Plan Discharge Clinical Impression: Anaphylaxis Patient Disposition: Home, Self-Care Instructions: General Allergic Reaction (ED) Additional Instructions: You were seen and evaluated in the emergency room. Your vital signs were normal. You were treated for an allergic reaction. You are given a prescription for an EpiPen. Please use as directed. If you find that you have to use your EpiPen in the future, please call 911 or go to the nearest emergency room. Please avoid all vaping products until you follow-up with your primary care doctor for allergy testing. Please follow-up with your primary care doctor in the next 5-7 days. ? Please return to the emergency room if you develop any worsening symptoms including, but not limited to chest pain or difficulty breathing. ? Prescriptions: New epinephrine 0.3 mg/0.3 mL auto-injector 0.3 mg IM Q10M PRN (Reason: anaphylaxis) Qty: 2 0RF Rx Instructions: for 2 doses No Action nicotine 21 mg/24 hr Patch 24 Hour 21 mg transdermal DAILY 28 Days Qty: 28 0RF nicotine (polacrilex) 2 mg Gum 4 mg buccal Q2H PRN (Reason: Nicotine Cravings) 30 Days Qty: 120 2RF buprenorphine-naloxone [Suboxone] 2-0.5 mg Film 0.5 film sublingual DAILY 30 Days Qty: 15 0RF risperidone 2 mg Tablet 2 mg PO BEDTIME 30 Days Qty: 30 0RF hydroxyzine HCl 25 mg Tablet 25 mg PO Q6H PRN (Reason: Anxiety) 30 Days Qty: 30 0RF trazodone 50 mg Tablet 50 mg PO BEDTIME PRN (Reason: Insomnia) 30 Days Qty: 30 0RF gabapentin 300 mg capsule 600 mg PO TID 30 Days Qty: 180 0RF naloxone [Narcan] 4 mg/actuation spray,non-aerosol 4 mg intranasal Q2M PRN (Reason: opioid overdose) 1 Days Qty: 2 0RF Rx Instructions: spray 1 dose into ONE nostril; alternate nostrils w each dose until help arrives dextroamphetamine-amphetamine [Adderall XR] 30 mg capsule,extended release 24hr 30 mg PO DAILY 15 Days Qty: 15 0RF Rx Instructions: Partial Fill upon patient request. Print Language: Luxembourger
[2024-04-13 18:26] VITALS: BP 159/66; PULSE 84
[2024-04-13] MEDS: EPINEPHrine 1 MG/ML VIAL 0.3 MG IM (18:26)
--- NOTE | 2024-04-13 18:29 | ED_ITS ---
HPI - General Adult General Chief complaint: Allergic Reaction Stated complaint: allergic reaction, tongue swelling, diff breathion Time Seen by Provider: 04/13/24 18:24 Source: patient Mode of arrival: ambulatory Limitations: no limitations Related Data Previous Rx's ?Medication ?Instructions ?Recorded buprenorphine 2 mg-naloxone 0.5 mg 0.5 film sublingual DAILY 30 days 02/17/24 sublingual film (Suboxone) #15 ea dextroamphetamine-amphetamine ER 30 mg PO DAILY 15 days #15 caps 02/17/24 30 mg 24hr capsule,extend release (Adderall XR) gabapentin 300 mg capsule 600 mg (2 x 300 mg) PO TID 30 days 02/17/24 #180 caps hydroxyzine HCl 25 mg tablet 25 mg PO Q6H PRN Anxiety 30 days 02/17/24 #30 tabs naloxone 4 mg/actuation nasal 4 mg intranasal Q2M PRN opioid 02/17/24 spray (Narcan) overdose 1 day #2 ea nicotine (polacrilex) 2 mg gum 4 mg buccal Q2H PRN Nicotine 02/17/24 Cravings 30 days #120 ea nicotine 21 mg/24 hr daily 21 mg transdermal DAILY 28 days 02/17/24 transdermal patch #28 ea risperidone 2 mg tablet 2 mg PO BEDTIME 30 days #30 tabs 02/17/24 trazodone 50 mg tablet 50 mg PO BEDTIME PRN Insomnia 30 02/17/24 days #30 tabs epinephrine 0.3 mg/0.3 mL 0.3 mg (0.3 mL) IM Q10M PRN 04/13/24 injection, auto-injector anaphylaxis #2 ea Allergies Allergy/AdvReac Type Severity Reaction Status Date / Time dog dander [dogs] Allergy Itching Verified 04/13/24 18:19 apple AdvReac Unknown Verified 02/12/24 05:53 carrot AdvReac Unknown Verified 02/12/24 05:53 [facility] Past Medical History Medical History No pertinent past medical history Social History Social History (Updated 02/12/24 @ 07:04 by Kisha Dey DO) Household Members: Family Household Members Other:: grandmother (104) Housing: House Do you presently have visiting nurse or other home services: No Unable to assess alcohol history related to: Refusing to respond Alcohol intake: former Patient Tobacco Use Status: Current everyday Tobacco user Tobacco use type: Cigarette Cigarette Packs Per Day: 1 Cigarettes Per Day: 20.0 Years Smoked: 19 Smoked in Last 30 Days: Yes Second Hand Smoke Exposure: No Substance Use Type: Opiates Advance Directives: No Advance Directives Information Provided: No service: No Sexual orientation: Straight/Heterosexual Physical Exam ED Vital Signs: Vital Signs - 24 hr 04/13/24 18:16 04/13/24 18:26 Temperature 98.1 F Pulse Rate 90 84 Respiratory Rate 20 Blood Pressure 138/75 159/66 H Pulse Oximetry 100 Oxygen Delivery Method Room Air BMI result Body Mass Index 33.0 Medications Administered Discontinued Medications Generic Name Dose Route Start Last Admin Trade Name Freq PRN Reason Stop Dose Admin Diphenhydramine HCl 25 mg 04/13/24 18:18 04/13/24 18:31 Diphenhydramine Hcl 50 Mg/Ml Vial IVPUSH 04/13/24 18:19 25 mg ONCE ONE Administration Epinephrine 0.3 mg 04/13/24 18:18 04/13/24 18:26 Epinephrine 1 Mg/Ml Vial IM 04/13/24 18:19 0.3 mg STAT STA Administration Famotidine 20 mg 04/13/24 18:18 04/13/24 18:31 Famotidine/Pf 20 Mg/2 Ml Vial IVPUSH 04/13/24 18:19 20 mg ONCE ONE Administration Sodium Chloride 1,000 mls @ 999 mls/hr 04/13/24 18:30 04/13/24 18:34 Ns IV 04/13/24 19:30 999 mls/hr .Q1H1M OMKAR Administration Medical Decision Making Admission/Observation Consideration of admission/observation: Escalation of care including admission/observation considered Independent Interpretation I performed an independent interpretation of an: EKG Interpretation: I independently reviewed and interpreted the patient's EKG, which demonstrates sinus rhythm at 89 beats per minute, [place] 164, QRS 108, QTC 440, no ST/T-wave changes, no STEMI Discharge Plan Discharge Clinical Impression: Anaphylaxis Patient Disposition: Home, Self-Care Instructions: General Allergic Reaction (ED) Additional Instructions: You were seen and evaluated in the emergency room. Your vital signs were normal. You were treated for an allergic reaction. You are given a prescription for an EpiPen. Please use as directed. If you find that you have to use your EpiPen in the future, please call 911 or go to the nearest emergency room. Please avoid all vaping products until you follow-up with your primary care doctor for allergy testing. Please follow-up with your primary care doctor in the next 5-7 days. ? Please return to the emergency room if you develop any worsening symptoms including, but not limited to chest pain or difficulty breathing. ? Prescriptions: New epinephrine 0.3 mg/0.3 mL auto-injector 0.3 mg IM Q10M PRN (Reason: anaphylaxis) Qty: 2 0RF Rx Instructions: for 2 doses No Action nicotine 21 mg/24 hr Patch 24 Hour 21 mg transdermal DAILY 28 Days Qty: 28 0RF nicotine (polacrilex) 2 mg Gum 4 mg buccal Q2H PRN (Reason: Nicotine Cravings) 30 Days Qty: 120 2RF buprenorphine-naloxone [Suboxone] 2-0.5 mg Film 0.5 film sublingual DAILY 30 Days Qty: 15 0RF risperidone 2 mg Tablet 2 mg PO BEDTIME 30 Days Qty: 30 0RF hydroxyzine HCl 25 mg Tablet 25 mg PO Q6H PRN (Reason: Anxiety) 30 Days Qty: 30 0RF trazodone 50 mg Tablet 50 mg PO BEDTIME PRN (Reason: Insomnia) 30 Days Qty: 30 0RF gabapentin 300 mg capsule 600 mg PO TID 30 Days Qty: 180 0RF naloxone [Narcan] 4 mg/actuation spray,non-aerosol 4 mg intranasal Q2M PRN (Reason: opioid overdose) 1 Days Qty: 2 0RF Rx Instructions: spray 1 dose into ONE nostril; alternate nostrils w each dose until help arrives dextroamphetamine-amphetamine [Adderall XR] 30 mg capsule,extended release 24hr 30 mg PO DAILY 15 Days Qty: 15 0RF Rx Instructions: Partial Fill upon patient request. Print Language: Wolof
[2024-04-13] MEDS: Famotidine/PF 20 MG/2 ML VIAL IVPUSH (18:31)
[2024-04-13] MEDS: diphenhydrAMINE HCL 50 MG/ML VIAL 25 MG IVPUSH (18:31)
--- NOTE | 2024-04-13 18:33 | ECG_ITS ---
Test Reason : SYNCOPE Blood Pressure : / mmHG Vent. Rate : 089 BPM Atrial Rate : 089 BPM P-R Int : 164 ms QRS Dur : 108 ms QT Int : 362 ms P-R-T Axes : 070 014 050 degrees QTc Int : 440 ms Normal sinus rhythm Normal ECG When compared with ECG of 12-FEB-2024 14:58, Vent. rate has increased BY 41 BPM Questionable change in QRS axis Referred By: Nico Minor Electronically Signed By:CLEMENTINA HARMON
[2024-04-13] MEDS: 0.9 % Sodium Chloride 1,000 ML 999 ML IV (18:34)
--- NOTE | 2024-04-13 19:17 | PC.NURSE ---
This RN assumed pt care @ 1900 Pt a&ox4, no signs of distress Pts gf at bedside Pt refused chest xray Plan of care ongoing.
--- NOTE | 2024-04-13 20:22 | PC.NURSE ---
Pt d/c from ns by previous RN.
[2024-04-13 20:23] VITALS: BP 140/70; PULSE 80; RESP 14; TEMP 36.7; O2SAT 98
== END 2024-04-13 20:26 | disposition home or self-care (01) ==
PROVIDERS: Emergency Provider Emergency Medicine
DX: T78.2XXA Anaphylactic shock, unspecified, initial encounter (principal); Y92.9 Unspecified place or not applicable; U07.0 Vaping-related disorder; R06.02 Shortness of breath
CPT/HCPCS: 93005; 96361; 96372; 96374; 96375; 99285; J0171; J1200

== ENCOUNTER 2024-04-21 11:48 | Emergency (ER) | payer OTHER, SELFPAY ==
--- NOTE | ~2024-04-21 | XR_ITS ---
EXAMINATION: XR CHEST CLINICAL INFORMATION: Chest pain. COMPARISON: Chest radiograph dated July 25, 2017. TECHNIQUE: 2 views of the chest were obtained. FINDINGS: The heart is normal in size. The lungs are clear. The left upper lobe pneumonia seen on examination dated July 25, 2017 is no longer visualized. There is no pleural effusion or pneumothorax. No acute osseous abnormality. XR/XR chest 2V IMPRESSION: No acute cardiopulmonary disease. Electronically signed by: Lino Garcia DO 04/21/2024 03:31 PM EDT
--- NOTE | 2024-04-21 11:49 | ECG_ITS ---
Test Reason : chest pain Blood Pressure : / mmHG Vent. Rate : 080 BPM Atrial Rate : 080 BPM P-R Int : 138 ms QRS Dur : 108 ms QT Int : 366 ms P-R-T Axes : 044 072 050 degrees QTc Int : 422 ms Normal sinus rhythm Incomplete right bundle branch block Borderline ECG When compared with ECG of 13-APR-2024 18:45, Incomplete right bundle branch block is now Present Referred By: Nicole Christopher Electronically Signed By:SANDRO XIONG MD
[2024-04-21 11:50] VITALS: BP 142/67; PULSE 80; RESP 20; TEMP 36.4; O2SAT 100; BMI 27.7
--- NOTE | 2024-04-21 11:50 | ED_ITS ---
HPI - General Adult General Chief complaint: Chest Pain Stated complaint: Chest pain Time Seen by Provider: 04/21/24 12:30 Source: patient, RN notes reviewed and old records reviewed History of Present Illness ED Provider: Akira Reina PA-C HPI narrative: 33 yo M with a past medical history of ADHD and anxiety presents to the ED c/o left-sided intermittent chest pain since around 12:00pm that radiates up towards his left shoulder and right upper quadrant. Described as stabbing in nature. Patient is not currently experiencing pain. Patient also reports a tingling feeling in his LUE & LLE yesterday. Endorses intermittent shortness of breath. Patient has not tried any medications to the pain. Denies any aggravating or alleviating positions. Denies cough, dizziness, palpitations, nausea, vomiting. No recent travel, no known clotting disorders, no recent sickness, no new medications, no known trauma or injury to the affected area. No similar symptoms in past, no further complaints this time. Related Data Previous Rx's ?Medication ?Instructions ?Recorded buprenorphine 2 mg-naloxone 0.5 mg 0.5 film sublingual DAILY 30 days 02/17/24 sublingual film (Suboxone) #15 ea dextroamphetamine-amphetamine ER 30 mg PO DAILY 15 days #15 caps 02/17/24 30 mg 24hr capsule,extend release (Adderall XR) gabapentin 300 mg capsule 600 mg (2 x 300 mg) PO TID 30 days 02/17/24 #180 caps hydroxyzine HCl 25 mg tablet 25 mg PO Q6H PRN Anxiety 30 days 02/17/24 #30 tabs naloxone 4 mg/actuation nasal 4 mg intranasal Q2M PRN opioid 02/17/24 spray (Narcan) overdose 1 day #2 ea nicotine (polacrilex) 2 mg gum 4 mg buccal Q2H PRN Nicotine 02/17/24 Cravings 30 days #120 ea nicotine 21 mg/24 hr daily 21 mg transdermal DAILY 28 days 02/17/24 transdermal patch #28 ea risperidone 2 mg tablet 2 mg PO BEDTIME 30 days #30 tabs 02/17/24 trazodone 50 mg tablet 50 mg PO BEDTIME PRN Insomnia 30 02/17/24 days #30 tabs epinephrine 0.3 mg/0.3 mL 0.3 mg (0.3 mL) IM Q10M PRN 04/13/24 injection, auto-injector anaphylaxis #2 ea Allergies Allergy/AdvReac Type Severity Reaction Status Date / Time dog dander [dogs] Allergy Itching Verified 04/21/24 11:51 apple AdvReac Unknown Verified 04/21/24 11:51 carrot AdvReac Unknown Verified 04/21/24 11:51 Review of Systems 2 Review of Systems: Yes all other systems are reviewed and are negative Constitutional: Constitutional: Reports as per [facility] Past Medical History Attestation statement: The following information was validated with the patient. Source: old records reviewed Medical History Abrasion of face No pertinent past medical history Social History Social History Household Members: Family Household Members Other:: grandmother ([phone]) Housing: House Do you presently have visiting nurse or other home services: No Unable to assess alcohol history related to: Refusing to respond Alcohol intake: former Patient Tobacco Use Status: Current everyday Tobacco user Tobacco use type: Cigarette Cigarette Packs Per Day: 1 Cigarettes Per Day: 20.0 Years Smoked: 19 Smoked in Last 30 Days: No Second Hand Smoke Exposure: No Use of substances other than those prescribed or required for medical reasons: No Substance Use Type: Opiates Advance Directives: No Advance Directives Information Provided: Yes service: No Sexual orientation: Straight/Heterosexual Physical Exam ED Vital Signs: Vital Signs - 24 hr 04/21/24 11:50 04/21/24 13:17 Temperature 97.6 F 98.4 F Pulse Rate 80 70 Respiratory Rate 20 16 Blood Pressure 142/67 H 121/74 Pulse Oximetry 100 100 Oxygen Delivery Method Room Air Room Air BMI result Body Mass Index 27.7 Const General: cooperative, healthy appearing, comfortable and no acute distress Orientation/consciousness: patient oriented x3 Limitations: no limitations HENMT Head: Yes normocephalic and Yes atraumatic Ears: hearing grossly normal bilaterally General nose exam: Normal external nose present Face and sinus: Yes normal facial exam Eyes General: appearance normal, both eyes and all related structures Pupils: Equal, round and reactive pupils present EOM: EOMs intact bilaterally Neck Neck: Yes normal visual inspection and Yes supple Chest Chest palpation & inspection: normal inspection of the chest, normal palpation of entire chest wall, no crepitus and no tenderness Resp Effort & Inspection: normal respiratory effort Auscultation: clear to auscultation bilaterally, no crackles and no wheezes Cardio Rate: regular rate Rhythm: regular rhythm Heart sounds: S1 normal heart sound present and S2 normal heart sound present GI Inspection: Yes normal to inspection Palpation (GI): Soft to palpation, nontender, no guarding and not rigid Skin General skin exam: no rashes or lesions noted, elasticity normal and turgor normal Rashes: no rashes Wounds: no wounds Neuro General: patient oriented x3, moves all extremities and CN's II-XI intact bilaterally Cranial nerves: Yes Equal, round and reactive pupils present Cognition (Neuro): normal cognition Gait exam (Neuro): Normal gait present Motor exam (neuro): 5/5 motor strength present throughout Extrem General: Yes normal to inspection Course Course Course Narrative: This is a rapid medical exam performed by Asael Christopher NP: Additional HPI, ROS, PE not included below will be deferred to primary provider. Patient is a 33-year-old male presenting with complaint of substernal chest pain since this morning at work. Now has pain only with deep inspiration and shortness of breath. Plan: EKG, labs, CXR, viral serology Labs reassuring. Troponin x2 negative. CXR unremarkable -viral studies negative > patient left without completing treatment, prior to 2nd troponin being resulted. Medications Administered Discontinued Medications Generic Name Dose Route Start Last Admin Trade Name Freq PRN Reason Stop Dose Admin Ketorolac Tromethamine 30 mg 04/21/24 12:51 04/21/24 13:12 Ketorolac Tromethamine 30 Mg/Ml Vial IM 04/21/24 12:52 30 mg ONCE ONE Administration Medical Decision Making Medical Decision Making [facility] Narrative: 33 yo M with a past medical history of ADHD and anxiety presents to the ED c/o left-sided intermittent chest pain since around 12:00pm that radiates up towards his left shoulder and RUQ. On exam, patient is nontoxic appearing, neurovascularly intact, no pain elicited to palpation of the affected area, strength intact throughout. Concern for musculoskeletal strain/sprain/costochondritis vs atypical ACS vs pneumonia vs PTX. Lower suspicion for PE/DVT as pain is intermittent. Plan: EKG, Labs, CXR, viral testing, pain control, re-evaluate Please refer to course for remaining medical decision-making including interpretation of labs/imaging, and discussions with family/patient Differential Diagnosis Differential Diagnoses: The differential diagnosis associated with the presentation includes As above Admission/Observation Consideration of admission/observation: Escalation of care including admission/observation considered Lab Data MDM Lab Attestation statement: I reviewed the patient's lab results. 04/21/24 12:17 04/21/24 12:17 Labs: Lab Results 04/21/24 04/21/24 Range/Units 12:17 15:33 WBC 6.1 (4.8-10.8) X10*3/uL RBC 4.65 (4.60-5.80) X10*6/uL Hgb 14.0 (14.0-18.0) g/dl Hct 41.9 L (42.0-52.0) % MCV 90.1 (80.0-98.0) fL MCH 30.1 (27.0-33.0) pg MCHC 33.4 (31.0-36.0) g/dl RDW 13.5 (11.0-16.0) % Plt Count 232 (160-400) X10*3/uL MPV 8.9 L (9.4-12.4) fL Immature Gran % (Auto) 0.2 (0.0-0.4) % Neut % (Auto) 65.4 (45-73) % Lymph % (Auto) 24.3 (20-40) % [place] % (Auto) 7.9 (2-11) % Eos % (Auto) 1.5 (0-4) % Baso % (Auto) 0.7 (0-2) % Lymph # (Auto) 1.5 (1.2-4.9) X10*3/uL [place] # (Auto) 0.5 (0.1-1.2) X10*3/uL Eos # (Auto) 0.1 (0.0-0.4) X10*3/uL Baso # (Auto) 0.0 (0.0-0.2) X10*3/uL Abs Immat Gran (auto) 0.01 (0.00-0.03) X10*3/uL Absolute Neuts (auto) 4.0 (2.0-8.3) x10*3/uL Absolute Nucleated RBC 0.020 H (0.0-0.012) X10*3/uL Nucleated RBC % (auto) 0.3 H (0.0-0.2) /100WBC PT 10.8 L (10.9-12.4) SEC INR 0.9 (0.9-1.1) Sodium 141 (135-145) mmol/L Potassium 4.1 (3.3-5.1) mmol/L Chloride 106 (96-108) mmol/L Carbon Dioxide 31 H (22-29) mmol/L Anion Gap 8 L (12-20) BUN 17 H (9-16) mg/dL Creatinine 0.90 (0.5-1.4) mg/dL Estim Creat Clear Calc 129.4 Estimated GFR > 60 Random Glucose 97 (60-115) mg/dL Calcium 9.0 D (8.4-10.2) mg/dL Total Bilirubin 0.3 (0.0-1.0) mg/dL AST 13 (5-37) U/L ALT 18 (0-40) U/L Alkaline Phosphatase 42 (39-117) U/L Troponin I High Sens < 2.7 < 2.7 (<3.5-35.0) ng/L Total Protein 6.6 (6.5-8.0) g/dL Albumin 4.1 (3.5-5.0) g/dL Lipase 39 (8-78) U/L Influenza Type A (PCR) NEGATIVE (Negative) Influenza Type B (PCR) NEGATIVE (Negative) RSV RNA Qual (PCR) NEGATIVE (Negative) SARS-CoV-2 RNA (RT-PCR) NEGATIVE (Negative) Independent Interpretation I performed an independent interpretation of an: EKG (My interpretation EKG normal sinus rhythm rate of 80. CA interval 138. QTC 422. Incomplete right bundle-branch block now present. No STEMI) and Plain X-Ray Radiology Impression Discussion of test interpretation with radiology: I have reviewed the radiologist's reading. External Record Review External record reviewed: Inpatient record, Office record, Outpatient record, Prior outpatient labs, Prior outpatient radiology, Primary care record and Outside ED record Tests considered The following testing was considered but not selected: As above Chronic Conditions Patient?s care impacted by: Other Discharge Plan Discharge Clinical Impression: Atypical chest pain Patient Disposition: Left W/O Completing Treatment Prescriptions: No Action nicotine 21 mg/24 hr Patch 24 Hour 21 mg transdermal DAILY 28 Days Qty: 28 0RF nicotine (polacrilex) 2 mg Gum 4 mg buccal Q2H PRN (Reason: Nicotine Cravings) 30 Days Qty: 120 2RF buprenorphine-naloxone [Suboxone] 2-0.5 mg Film 0.5 film sublingual DAILY 30 Days Qty: 15 0RF risperidone 2 mg Tablet 2 mg PO BEDTIME 30 Days Qty: 30 0RF hydroxyzine HCl 25 mg Tablet 25 mg PO Q6H PRN (Reason: Anxiety) 30 Days Qty: 30 0RF trazodone 50 mg Tablet 50 mg PO BEDTIME PRN (Reason: Insomnia) 30 Days Qty: 30 0RF gabapentin 300 mg capsule 600 mg PO TID 30 Days Qty: 180 0RF naloxone [Narcan] 4 mg/actuation spray,non-aerosol 4 mg intranasal Q2M PRN (Reason: opioid overdose) 1 Days Qty: 2 0RF Rx Instructions: spray 1 dose into ONE nostril; alternate nostrils w each dose until help arrives dextroamphetamine-amphetamine [Adderall XR] 30 mg capsule,extended release 24hr 30 mg PO DAILY 15 Days Qty: 15 0RF Rx Instructions: Partial Fill upon patient request. epinephrine 0.3 mg/0.3 mL auto-injector 0.3 mg IM Q10M PRN (Reason: anaphylaxis) Qty: 2 0RF Rx Instructions: for 2 doses
[2024-04-21 12:23] LABS: MANUAL DIFF FLAG NO
[2024-04-21 12:25] LABS: Basophils Percent Auto 0.7 % (0-2); Eosinophils Absolute Auto 0.1 X10*3/uL (0.0-0.4); Eosinophils Percent Auto 1.5 % (0-4); Hematocrit 41.9 % (42.0-52.0); Imm Gran Abs Auto 0.01 X10*3/uL (0.00-0.03); Imm Gran Pct Auto 0.2 % (0.0-0.4); Lymphocytes Absolute Auto 1.5 X10*3/uL (1.2-4.9); Lymphocytes Percent Auto 24.3 % (20-40); Mean Corpuscular HGB Conc 33.4 g/dl (31.0-36.0); Mean Corpuscular Hemoglobin 30.1 pg (27.0-33.0); Mean Corpuscular Volume 90.1 fL (80.0-98.0); Mean Platelet Volume 8.9 fL (9.4-12.4); Monocytes Absolute Auto 0.5 X10*3/uL (0.1-1.2); Monocytes Percent Auto 7.9 % (2-11); NRBC Pct Auto 0.3 /100WBC (0.0-0.2); Neutrophils Percent Auto 65.4 % (45-73); Platelet Count 232 X10*3/uL (160-400); Red Blood Count 4.65 X10*6/uL (4.60-5.80); Red Cell Distribution Width 13.5 % (11.0-16.0); White Blood Count 6.1 X10*3/uL (4.8-10.8)
[2024-04-21 12:33] LABS: INTERNATIONAL NORM RATIO 0.9 (0.9-1.1); Prothrombin Time 10.8 SEC (10.9-12.4)
[2024-04-21 12:38] LABS: Alanine Aminotransferase 18 U/L (0-40); Albumin Level 4.1 g/dL (3.5-5.0); Alkaline Phosphatase 42 U/L (39-117); Anion Gap 8 (12-20); Aspartate Amino Transferase 13 U/L (5-37); Bilirubin Total 0.3 mg/dL (0.0-1.0); Blood Urea Nitrogen 17 mg/dL (9-16); Carbon Dioxide 31 mmol/L (22-29); Chloride 106 mmol/L (96-108); Creatinine Clr Calc Pharmacy 129.4; Estimated Glomerular Filt Rate > 60; Glucose Random 97 mg/dL (60-115); Potassium 4.1 mmol/L (3.3-5.1); Sodium 141 mmol/L (135-145); Total Protein 6.6 g/dL (6.5-8.0)
[2024-04-21 12:45] LABS: Troponin-I High Sensitivity < 2.7 ng/L (<3.5-35.0)
[2024-04-21 13:04] LABS: Lipase 39 U/L (8-78)
[2024-04-21] MEDS: Ketorolac Tromethamine 30 MG/ML VIAL IM (13:12)
[2024-04-21 13:17] VITALS: BP 121/74; PULSE 70; RESP 16; TEMP 36.9; O2SAT 100
[2024-04-21 13:24] LABS: Influenza A PCR NEGATIVE (Negative); Influenza B PCR NEGATIVE (Negative); Resp Syncy Virus RNA Qual PCR NEGATIVE (Negative); SARS COV2 PCR INHOUSE NEGATIVE (Negative)
--- NOTE | 2024-04-21 15:35 | PC.NURSE ---
repeat troponin obtained/sent to lab by tech.
[2024-04-21 16:15] LABS: Troponin-I High Sensitivity < 2.7 ng/L (<3.5-35.0)
--- NOTE | 2024-04-21 16:17 | PC.NURSE ---
repeat labs obtained/sent to lab. when going back in the room to reassess pt - it was noted that pt LWCT. hospital attire/equipment was left bedside. pt did not have an IV in place. provider/charge notified/aware.
[2024-04-21 16:20] VITALS: BP 0/0; PULSE 0; RESP 0; TEMP -17.7; TEMP 0; O2SAT 0
== END 2024-04-21 16:20 | disposition left against medical advice (07) ==
PROVIDERS: Physician Assistant; Registered Nurse Emergency; Emergency Provider Emergency Medicine; PCP Internal Medicine
DX: R07.89 Other chest pain (principal); M25.512 Pain in left shoulder; R06.02 Shortness of breath; F17.210 Nicotine dependence, cigarettes, uncomplicated; Z03.818 Encounter for observation for suspected exposure to other biological agents ruled out; Z79.899 Other long term (current) drug therapy
CPT/HCPCS: 0241U; 36415; 71046; 80053; 83690; 84484; 85025; 85610; 93005; 96372; 99284; 99285; J1885

== ENCOUNTER → 2024-04-21 11:49 | Outpatient (BNV) | payer OTHER, SELFPAY | PROVIDERS: PCP Internal Medicine; Visit Provider Internal Medicine Cardiovascular Disease | DX: R07.9 Chest pain, unspecified (principal); I45.19 Other right bundle-branch block | CPT/HCPCS: 93010 ==

== ENCOUNTER 2024-05-01 15:11 | Emergency (ER) | payer OTHER, SELFPAY ==
--- NOTE | ~2024-05-01 | XR_ITS ---
EXAMINATION: XR LUMBOSACRAL SPINE CLINICAL INFORMATION: Low back pain after lifting. COMPARISON: None available. TECHNIQUE: Three views of the lumbosacral spine. FINDINGS: No acute compression deformity or subluxation. Intervertebral disc heights are maintained. Normal appearance of the posterior elements. No significant paraspinal soft tissue abnormality. XR/XR lumbar spine 2-3V IMPRESSION: No significant radiographic abnormality. Electronically signed by: Brandi Jones MD 05/01/2024 04:41 PM EDT
[2024-05-01 15:13] VITALS: BP 142/89; PULSE 65; RESP 18; TEMP 36.3; O2SAT 100; BMI 27.1
--- NOTE | 2024-05-01 15:13 | ED_ITS ---
HPI - Back Pain/Injury General Chief Complaint: Back Pain/Injury Stated Complaint: back pain Time Seen by Provider: 05/01/24 16:00 Source: patient Mode of arrival: ambulatory Limitations: no limitations History of Present Illness ED Provider: Veronica Hopper PA-C HPI Narrative: 33 yo male with history of opioid use disorder, ADHD, chronic low back pain formerly on gabapentin and suboxone who presents to the ER for evaluation of acute onset of lower back pain that started today when he was cleaning and lifted up a vaccuum casing cleaner. He reports when he was twisting he felt a sudden spasm and intense pain in his lower back, mostly on the left side. Pain intermittently radiates down the left leg into the left hip. It is worse with ambulation, and sitting up. He denies any bowel or bladder incontinence. No weakness in the leg. He reports for the last 1 month he has been off of pain medications and gabapentin in his back pain has been relatively well controlled until today MD elicited complaint: back injury Pertinent past history: prior back pain Onset (ago): hour(s) Timing: constant Severity: severe Pain scale (0-10): 8 Quality: stabbing and spasming Location: lumbar spine and left lower back Radiation: groin and left upper leg Exacerbating factors: movement and walking Relieving factors: immobilization Context: while lifting and turning/twisting Associated symptoms: denies other symptoms Work related injury: No Related Data Previous Rx's ?Medication ?Instructions ?Recorded buprenorphine 2 mg-naloxone 0.5 mg 0.5 film sublingual DAILY 30 days 02/17/24 sublingual film (Suboxone) #15 ea dextroamphetamine-amphetamine ER 30 mg PO DAILY 15 days #15 caps 02/17/24 30 mg 24hr capsule,extend release (Adderall XR) gabapentin 300 mg capsule 600 mg (2 x 300 mg) PO TID 30 days 02/17/24 #180 caps hydroxyzine HCl 25 mg tablet 25 mg PO Q6H PRN Anxiety 30 days 02/17/24 #30 tabs naloxone 4 mg/actuation nasal 4 mg intranasal Q2M PRN opioid 02/17/24 spray (Narcan) overdose 1 day #2 ea nicotine (polacrilex) 2 mg gum 4 mg buccal Q2H PRN Nicotine 02/17/24 Cravings 30 days #120 ea nicotine 21 mg/24 hr daily 21 mg transdermal DAILY 28 days 02/17/24 transdermal patch #28 ea risperidone 2 mg tablet 2 mg PO BEDTIME 30 days #30 tabs 02/17/24 trazodone 50 mg tablet 50 mg PO BEDTIME PRN Insomnia 30 02/17/24 days #30 tabs epinephrine 0.3 mg/0.3 mL 0.3 mg (0.3 mL) IM Q10M PRN 04/13/24 injection, auto-injector anaphylaxis #2 ea naproxen 500 mg tablet,delayed 500 mg PO BID PRN pain #20 tabs 05/01/24 release (EC-Naprosyn) Allergies Allergy/AdvReac Type Severity Reaction Status Date / Time cat dander [cats] Allergy Swelling Verified 05/01/24 15:17 dog dander [dogs] Allergy Itching Verified 04/21/24 11:51 apple AdvReac Unknown Verified 04/21/24 11:51 carrot AdvReac Unknown Verified 04/21/24 11:51 Review of Systems Review of Systems: Yes all other systems are reviewed and are negative [facility] Past Medical History Medical History Abrasion of face No pertinent past medical history Social History Social History Household Members: Family Household Members Other:: grandmother (104) Housing: House Do you presently have visiting nurse or other home services: No Unable to assess alcohol history related to: Refusing to respond Alcohol intake: former Patient Tobacco Use Status: Current everyday Tobacco user Tobacco use type: Cigarette Cigarette Packs Per Day: 1 Cigarettes Per Day: 20.0 Years Smoked: 19 Second Hand Smoke Exposure: No Substance Use Type: Opiates Advance Directives: No Advance Directives Information Provided: No service: No Sexual orientation: Straight/Heterosexual Physical Exam Vital Signs: Vital Signs: Last Vital Signs Temp 97.3 F 05/01/24 15:13 Pulse 65 05/01/24 15:13 Resp 18 05/01/24 15:13 BP 142/89 H 05/01/24 15:13 Pulse Ox 100 05/01/24 15:13 O2 Del Method Room Air 05/01/24 15:13 BMI result Body Mass Index 27.1 Appearance: Alert. Oriented X3. No acute distress. HEENT: normal inspection CVS: Normal heart rate and rhythm. Pulses normal. Respiratory: No respiratory distress. Skin: Skin warm and dry. Normal skin color. Normal skin turgor. No rashes. Back: Normal inspection. Lumbar tenderness of the middle lumbar spine, left- sided soft tissues with palpable spasm. Extremities: Normal inspection x4, no joint swelling, no peripheral edema Neuro: Oriented X 3. No motor deficit. No sensory deficit. Slow but steady gait. Course Course Course Narrative: This is a Rapid Medical Examination (RME) performed by Kailey Perez PA-C in triage. Full HPI, ROS, assessment and treatment plan per primary provider in the Main ED. 33 yo male hx of ADHD and anxiety here for eval of low back pain which began after lifting a vacuum at 1000 this morning. pain radiates to right groin. worse w/ movement. no OTC pain meds [employer]. also endorses increased urinary frequency and urgency. no hematuria. no blunt injury or trauma. Admits to remote history of herniated disc. No saddle anesthesia, bowel or bladder incontinence or retention. No history of spinal surgery. + no midline spinous tenderness or step off deformity. no CVAT Plan: xr, UA Medications Administered Discontinued Medications Generic Name Dose Route Start Last Admin Trade Name Freq PRN Reason Stop Dose Admin Acetaminophen 975 mg 05/01/24 16:41 05/01/24 16:46 Acetaminophen 325 Mg Tablet PO 05/01/24 16:42 975 mg ONCE ONE Administration Ketorolac Tromethamine 30 mg 05/01/24 16:41 05/01/24 16:46 Ketorolac Tromethamine 30 Mg/Ml Vial IM 05/01/24 16:42 30 mg ONCE ONE Administration Lidocaine 1 patch 05/01/24 16:41 05/01/24 16:46 Lidocaine 4 % Patch Adh..Patch TRANSDERMA 05/01/24 16:42 1 patch ONCE ONE Administration Protocol Medical Decision Making Medical Decision Making MDM Narrative: 33-year-old male with a history of chronic back pain, history of herniated discs in the past presents to the ER for evaluation of worsening lower back pain after he was lifting and twisting with a vacuum casing cleaner today. He has no red flag symptoms of low back pain. He is asking only to be treated with anti- inflammatories and Tylenol given his addiction history. X-rays of the lumbar spine were done and were unremarkable. Urinalysis not consistent with infection, no blood. Will discharge home with NSAIDs, supportive care and outpatient follow-up. Return precautions were discussed. Stable for discharge home Differential Diagnosis Differential Diagnoses: The differential diagnosis associated with the presentation includes Inflammatory disorders, malignancy, trauma, osteoporosis, nerve root compression, radiculopathy, plexopathy, degenerative disc disease, disc herniation, spinal stenosis, sacroiliac joint dysfunction, facet joint injury, and less likely infection?like abscess or diskitis Lab Data MDM Lab Attestation statement: I reviewed the patient's lab results. No evidence of infection, no blood Labs: Lab Results 05/01/24 Range/Units 16:52 Urine Color Yellow Urine Appearance Turbid Urine pH 7.0 (5.0-9.0) Ur Specific [place] 1.015 (1.005-1.025) Urine Protein Negative (Neg-Trace) mg/dL Urine Glucose (UA) Negative (Negative) mg/dL Urine Ketones Negative (Negative) mg/dL Urine Blood Negative (Negative) Urine Nitrite Negative (Negative) Ur Leukocyte Esterase Negative (Negative) Independent Interpretation I performed an independent interpretation of an: Plain X-Ray Interpretation: No evidence compression fracture Radiology Impression Discussion of test interpretation with radiology: I have reviewed the radiologist's reading. External Record Review External record reviewed: Inpatient record, Outpatient record, Prior outpatient labs and Prior outpatient radiology Prescription Management I considered prescription management with: Pain Medication Chronic Conditions Patient?s care impacted by: Other (Substance use) Social Determinants Patient?s care significantly limited by Social Determinants of Health including: Other Social Determinant of Health Critical Care Time Critical Care Time Critical Care Time: No Discharge Plan Discharge Clinical Impression: Strain of lumbar region Qualifiers: Encounter type: initial encounter Qualified Code(s): S39.012A - Strain of muscle, fascia and tendon of lower back, initial encounter Patient Disposition: Home, Self-Care Instructions: Low Back Strain (ED), Lower Back Exercises (ED) Additional Instructions: Your pain is most likely due to muscle strain and spasm. Your x-ray today was nromal. Limit bending, lifting or twisting. Use ice several times per day for 20 minutes at a time for the next 48 hours and then change to heat. Take medications as prescribed to help with pain and discomfort. Follow up with your Primary Care Doctor this week. If your pain worsens, if you develop new numbness, tingling, weakness, loss of function or incontinence call 911 or come back to the ER right away for evaluation. Prescriptions: New naproxen [EC-Naprosyn] 500 mg tablet,delayed release (DR/EC) 500 mg PO BID PRN (Reason: pain) Qty: 20 0RF No Action nicotine 21 mg/24 hr Patch 24 Hour 21 mg transdermal DAILY 28 Days Qty: 28 0RF nicotine (polacrilex) 2 mg Gum 4 mg buccal Q2H PRN (Reason: Nicotine Cravings) 30 Days Qty: 120 2RF buprenorphine-naloxone [Suboxone] 2-0.5 mg Film 0.5 film sublingual DAILY 30 Days Qty: 15 0RF risperidone 2 mg Tablet 2 mg PO BEDTIME 30 Days Qty: 30 0RF hydroxyzine HCl 25 mg Tablet 25 mg PO Q6H PRN (Reason: Anxiety) 30 Days Qty: 30 0RF trazodone 50 mg Tablet 50 mg PO BEDTIME PRN (Reason: Insomnia) 30 Days Qty: 30 0RF gabapentin 300 mg capsule 600 mg PO TID 30 Days Qty: 180 0RF naloxone [Narcan] 4 mg/actuation spray,non-aerosol 4 mg intranasal Q2M PRN (Reason: opioid overdose) 1 Days Qty: 2 0RF Rx Instructions: spray 1 dose into ONE nostril; alternate nostrils w each dose until help arrives dextroamphetamine-amphetamine [Adderall XR] 30 mg capsule,extended release 24hr 30 mg PO DAILY 15 Days Qty: 15 0RF Rx Instructions: Partial Fill upon patient request. epinephrine 0.3 mg/0.3 mL auto-injector 0.3 mg IM Q10M PRN (Reason: anaphylaxis) Qty: 2 0RF Rx Instructions: for 2 doses Referrals: Sunny Gunn MD [Primary Care Provider] - Stand Alone Forms: Work/School Release Print Language: Ghanaian
[2024-05-01] MEDS: Ketorolac Tromethamine 30 MG/ML VIAL IM (16:46)
[2024-05-01] MEDS: Lidocaine 4 % Patch ADH..PATCH 1 PATCH TRANSDERMA (16:46)
[2024-05-01] MEDS: Acetaminophen 325 MG TABLET 975 MG PO (16:46)
[2024-05-01 17:01] LABS: Appearance Urine Turbid; Color Urine Yellow; Glucose Urine UA Negative (Negative); Leukocyte Esterase Urine Negative (Negative); Nitrite Urine Negative (Negative); Specific Gravity - Urine 1.015 (1.005-1.025); Urine Blood Negative (Negative); Urine Ketones Negative (Negative); Urine Protein Negative (Neg-Trace)
[2024-05-01 18:48] VITALS: BP 142/89; PULSE 65; RESP 18; TEMP 36.3; O2SAT 100
== END 2024-05-01 18:48 | disposition home or self-care (01) ==
PROVIDERS: Physician Assistant Medical; Emergency Provider Emergency Medicine; PCP Internal Medicine
DX: S39.012A Strain of muscle, fascia and tendon of lower back, initial encounter (principal); X50.0XXA Overexertion from strenuous movement or load, initial encounter; Y93.E9 Activity, other interior property and clothing maintenance; Y92.098 Other place in other non-institutional residence as the place of occurrence of the external cause; Y99.8 Other external cause status
CPT/HCPCS: 72100; 81003; 96372; 99283; 99284; J1885

== ENCOUNTER 2024-07-14 17:45 | Emergency (ER) | payer BC, SELFPAY ==
--- NOTE | ~2024-07-14 | CT_ITS ---
CLINICAL HISTORY: headache for over a month CT head without contrast Comparison: None Findings: No intra-axial mass, midline shift, hydrocephalus, or acute hemorrhage. No significant atrophy-like change or white matter disease. Mucosal thickening of the left maxillary sinus. The orbits are unremarkable. No skull fracture. IMPRESSION: 1. No acute intracranial findings This document has been electronically signed by: Maikel Sin MD on 07/14/2024 20:41:45
--- OUTSIDE RECORDS SUMMARY | 2024-07-14 17:47 | XMS_ITS | Data Portability ---
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 Plan of Treatment Reminders Order Date Submit Date Provider Last Modified By Organization Details Last Modified Time Details Appointments None recorded. Lab None recorded. Referral None recorded. Procedures None recorded. Surgeries None recorded. Imaging XR, knee, 3 view 2022 023 [facility], [address] [place], [address], 13:59:21 Medication Orders naproxen 500 mg tablet 2022 023 [id number], [address] [place], [place], [id number], 19:16:00 Patient TargetsNo targets recorded. Patient Instructions Encounter Date Encounter Id Patient Instructions Last Modified By Organization Details Last Modified Time 12/01/2022 [id number] knee pain or injury: care instructions Not available 12/01/2022 19:15:51 MUSCULOSKELETAL- K NEE: Inspection of the knee shows no erythema, ecchymosis, or swelling. FROM was full/limited Palpation of the calf and popliteal fossa showed no mass or tenderness. Palpation of patella was nontender. Palpation of medial and lateral joint lines were nontender. Patella ? grind-test? with NO crepitus. Valgus and Varus testing of the knee showed definite end points. Lateral collateral ligament was nontendner. Medial collateral ligament was nontender. Anterior Drawer Maneuvers: Normal Posterior Drawer maneuvers: Normal Jignesh's: Negative Donta's Negative Not available 12/01/2022 19:15:49 Reason for Referral None Reported. Results Created Date Observation Date Name Description Value Unit Range Abnormal Flag Note LastModifiedBy Organization Detail LastModifiedTime 12/03/1912/02/2022 XR, knee, 3 view No observ ation record ed. [email or web address] [address] [place], [place], [address], 12/03/2022 11:04:29 12/04/19 XR, knee, 3 view No observ ation record ed. [facility] [address] [place], [place], [address], 12/03/2022 10:50:53 Result Notes None recorded. Problems Name Problem SNOMED Code Status Onset Date Resolution Date Notes Provider Name and Address Organization Details Recorded Time Attention deficit hyperactivity disorder 033397860 Active MEGAN RAMOS RA null, [place] - [facility] 19:01:07 Intervertebral disc prolapse 95991943 Active MEGAN RAMOS RA null, [place] - [facility] 19:01:19 Problem Notes None recorded. Procedures Surgical History None recorded. Imaging Results Imaging Date Name Status LastModified by Organiz ation Details LastModified Time 12/02/2022 XR, knee, 3 view completed [email or web address] [address] [place], [address], 12/03/2022 11:04:29 12/03/2022 XR, knee, 3 view completed [facility] [address] [place], [place], [address], 12/03/2022 10:50:53 Procedure Notes None recorded. Medical Equipment None Reported. Allergies No known drug allergies Medications Name Sig Start Date Stop Date Status Note LastModified by Organization Details LastModified Time gabapentin 400 mg capsule TAKE 1 CAPSULE BY MOUTH 4 TIMES DAILY 12/01 completed Not Available Not Available Not Available dextroamphe tamine-amph etamine 15 mg tablet TAKE 1 TABLET BY MOUTH DAILY active Not Available Not Available No t Available gabapentin 300 mg capsule TAKE 2 CAPSULES BY MOUTH 4 TIMES DAILY active Not Available Not Available No t Available gabapentin 100 mg capsule TAKE 1 CAPSULE BY MOUTH THREE TIMES DAILY 12/01 completed Not Available Not Available Not Available methylpredn isolone 4 mg tablets in a dose pack FOLLOW PACKAGE DIRECTION S 12/01 completed Not Available Not Available Not Available dextroamphe tamine-amph etamine ER 30 mg 24hr capsule,ext end release TAKE 1 CAPSULE BY MOUTH ONCE DAILY IN THE MORNING active Not Available Not Available No t Available ondansetron 4 mg disintegrat ing tablet DISSOLVE 1 TABLET ON THE TONGUE EVERY 8 HOURS NEEDED FOR NAUSEA OR VOMITING 12/01 completed Not Available Not Available Not Available dicyclomine 10 mg capsule TAKE 1 CAPSULE BY MOUTH THREE TIMES DAILY FOR 5 DAYS 12/01 completed Not Available Not Available Not Available naproxen 500 mg tablet Take 1 tablet twice a day by oral route with meals for 10 days. 2022 active Not Available Not Available Not Avai lable methylpheni date ER 27 mg tablet,exte nded release 24 hr TAKE 1 TABLET BY MOUTH ONCE DAILY 12/01 completed Not Available Not Available Not Available dextroamphe tamine-amph etamine ER 15 mg 24hr capsule,ext end release TAKE 1 CAPSULE BY MOUTH ONCE DAILY 12/01 completed Not Available Not Available Not Available Adderall XR 5 mg capsule,ext ended release TAKE 1 CAPSULE BY MOUTH ONCE DAILY 12/01 completed Not Available Not Available Not Available Adderall XR 25 mg capsule,ext ended release TAKE 1 CAPSULE BY MOUTH ONCE DAILY 12/01 completed Not Available Not Available Not Available buprenorphi ne 8 mg-naloxone [address] 1 FILM UNDER THE TONGUE TWICE DAILY 12/01 completed Not Available Not Available Not Available [employer] At-Home COVID-19 Test kit Use as Directed on the Package 12/01 completed Not Available Not Available Not Available Vitals Date Recorded Body height Body mass index (BMI) Body weight Respiratory rate Oxygen saturation Oxygen saturation in Arterial blood by Pulse oximetry Heart rate Body temperature Systolic blood pressure Diastolic blood pressure Provider Name and Address Organization Details Last Updated DateTime 185.42 cm 31.7 kg/m2 753120. 17 g 19 /min 99 % 99 % 77 /min 98.1 [degF] 121 mm[Hg] 75 mm[Hg] MEGAN Dalal [facility] 19:03:36 Social History Question Answer Notes LastModified by Organizat ion Details LastModified Time Tobacco Smoking Status Current Every Day Smoker DAVIDA Zapata [facility] 12/01/2022 19:01:40 What Is Your Level Of Alcohol Consumption? None Information not available 12/01/2022 Have You Had Direct Contact, Or Contact During Intimacy, With Monkeypox Rash, Scabs, Or Body Fluids From A Person With Monkeypox? No Information not available 12/01/2022 How Much Tobacco Do You Smoke? 1 PPW Information not available 12/01/2022 Do You Use Any Illicit Or Recreational Drugs? No Information not available 12/01/2022 Have You Recently Traveled Abroad? No Information not available 12/01/2022 Do You Or Have You Ever Used Any Other Forms Of Tobacco Or Nicotine? No Information not available 12/01/2022 Sex: Unknown Functional Status None recorded. Mental Status None recorded. Family History Relationship Description Onset Age of this Age Resolved Age Notes LastModified by Organization Details LastModified Time Father No current problems or disability Not available 19:01:26 Mother No current problems or disability Not available 19:01:26 Medical History No medical history recorded. Immunizations Vaccine Type Date Status Note Provider Nam e and Address Organization Details Recorded Time COVID-19, mRNA, LNP-S, PF, 100 mcg/0.5mL dose or 50 mcg/0.25mL dose 04/12/2021 completed DAVIDA Zapata [facility] 12/01/2022 18:58:55 Tdap 02/12/2021 completed DAVIDA Zapata [facility] 12/01/2022 18:58:55 Past Encounters Encounter ID Performer Location Encounter Start Date Encounter Closed Date Diagnosis/Indication Diagnosis SNOMED-CT Code Diagnosis ICD10 Code [id number] [address] [facility] [place] [address] 08/02/2019 11:50:22 08/02/2019 12:29:53 [id number] [facility] [place] [address] 04/28/2017 17:32:55 04/28/2017 18:46:46 [id number] [address] [place] [address] 04/29/2022 12:23:23 04/29/2022 13:33:36 [id number] [address] [place] [address] 04/28/2022 08:21:00 04/28/2022 09:48:47 [id number] [address] [place] [address] 07/25/2017 13:51:50 07/25/2017 15:41:08 [id number] Frankie Shah [place] [address] [place] [address] 12/01/2022 18:51:05 12/01/2022 19:24:48 Pain of left knee joint 2895966920 50931 M25.562 Health Concerns Section Related Observation LastModified by Organization Detai ls LastModified Time None Recorded Concern Status LastModified by Organization Details LastModified Time None Recorded Advance Directives Directive None Recorded Payers Encounter Date Sequence Insurance Name Policy Number Policy Monroy Covered Member ID Monroy Member ID Guarantor Name 04/29/2022 1 [place] [id number] Edward W Moss [id number] Edward Moss 12/01/2022 1 [place] [id number] Edward W Moss [id number] Edward Moss Notes Date Note Type Note Provider Name and Address Organization Details Recorded Time 12/01/2022 text/html KneeReported bypatient.Location :left; anterior Quality:aching; sharp; frequent; worsening Severity:moderate; pain level 5/10 Duration:5 days Timing:acute Context:cannot identify; overuse Alleviating Factors:rest; limited weight bearing Aggravating Factors:walking; ROM; weight bearing Associated Symptoms:no weakness; no numbness; no tingling; no redness; no warmth; no ecchymosis; no catching/locking; no buckling; no grinding; no instability; no radiation down leg; no drainage; no fever; no chills; no weight loss; no change in bowel/bladder habits;popping/cli cking Previous Surgery:none Prior Imaging:none Previous Injections:none Previous PT:none Work Related:no Working:no Frankie Shah NP [address] [place], [address], [place] - [facility] 12/01/2022 19:16:44
[2024-07-14 18:01] VITALS: BP 107/70; PULSE 55; RESP 19; TEMP 36.6; O2SAT 98; BMI 30.3
[2024-07-14 22:21] VITALS: BP 114/68; PULSE 58; RESP 18; TEMP 36.8; O2SAT 99
--- NOTE | 2024-07-14 22:51 | ED_ITS ---
HPI - Headache General Chief Complaint: Headache Stated Complaint: dizziness Time Seen by Provider: 07/14/24 22:46 Source: patient Mode of arrival: ambulatory Limitations: no limitations History of Present Illness ED Provider: HPI Narrative: Patient with no significant past medical history been having pain behind the eyes for last 1 month with nausea and light sensitivity no fever no chills Related Data Previous Rx's ?Medication ?Instructions ?Recorded buprenorphine 2 mg-naloxone 0.5 mg 0.5 film sublingual DAILY 30 days 02/17/24 sublingual film (Suboxone) #15 ea dextroamphetamine-amphetamine ER 30 mg PO DAILY 15 days #15 caps 02/17/24 30 mg 24hr capsule,extend release (Adderall XR) gabapentin 300 mg capsule 600 mg (2 x 300 mg) PO TID 30 days 02/17/24 #180 caps hydroxyzine HCl 25 mg tablet 25 mg PO Q6H PRN Anxiety 30 days 02/17/24 #30 tabs naloxone 4 mg/actuation nasal 4 mg intranasal Q2M PRN opioid 02/17/24 spray (Narcan) overdose 1 day #2 ea nicotine (polacrilex) 2 mg gum 4 mg buccal Q2H PRN Nicotine 02/17/24 Cravings 30 days #120 ea nicotine 21 mg/24 hr daily 21 mg transdermal DAILY 28 days 02/17/24 transdermal patch #28 ea risperidone 2 mg tablet 2 mg PO BEDTIME 30 days #30 tabs 02/17/24 trazodone 50 mg tablet 50 mg PO BEDTIME PRN Insomnia 30 02/17/24 days #30 tabs epinephrine 0.3 mg/0.3 mL 0.3 mg (0.3 mL) IM Q10M PRN 04/13/24 injection, auto-injector anaphylaxis #2 ea naproxen 500 mg tablet,delayed 500 mg PO BID PRN pain #20 tabs 05/01/24 release (EC-Naprosyn) rxznlaatiz-oidrxpvzrvcra-ekchnzxn 1 tab PO Q6H PRN haeadace #20 tabs 07/14/24 50 mg-325 mg-40 mg tablet sumatriptan succinate 50 mg tablet 50 mg PO Q2H PRN migraine headache 07/14/24 (Imitrex) #10 tabs Allergies Allergy/AdvReac Type Severity Reaction Status Date / Time cat dander [cats] Allergy Swelling Verified 07/14/24 18:04 dog dander [dogs] Allergy Itching Verified 07/14/24 18:04 apple AdvReac Unknown Verified 07/14/24 18:04 carrot AdvReac Unknown Verified 07/14/24 18:04 Review of Systems Review of Systems: Yes all other systems are reviewed and are negative [facility] Past Medical History Medical History Abrasion of face No pertinent past medical history Social History Social History Household Members: Family Household Members Other:: grandmother ([phone]) Housing: House Do you presently have visiting nurse or other home services: No Unable to assess alcohol history related to: Refusing to respond Alcohol intake: former Patient Tobacco Use Status: Current everyday Tobacco user Tobacco use type: Cigarette Cigarette Packs Per Day: 1 Cigarettes Per Day: 20.0 Years Smoked: 19 Smoked in Last 30 Days: Yes Second Hand Smoke Exposure: No Use of substances other than those prescribed or required for medical reasons: No Substance Use Type: Opiates Advance Directives: No Advance Directives Information Provided: No Do you have a plan to hurt others: No Plan service: No Sexual orientation: Straight/Heterosexual Physical Exam Vital Signs: Vital Signs: Last Vital Signs Temp 98.0 F 07/14/24 23:22 Pulse 55 07/14/24 23:22 Resp 16 07/14/24 23:22 BP 106/57 L 07/14/24 23:22 Pulse Ox 97 07/14/24 23:22 O2 Del Method Room Air 07/14/24 23:22 BMI result Body Mass Index 30.3 Appearance: Alert. Oriented X3. No acute distress. Eyes: PERRLA, No Nystagmus ENT: Pharynx normal. Oral Mucosa moist no temporal artery tenderness Neck: Normal inspection. Neck supple. CVS: Normal heart rate and rhythm. Pulses normal. Respiratory: No respiratory distress. Equal air entry bilateral, no wheezing/rales/rhonchi Abdomen: Soft and nontender. Bowel sounds are present, no mass palpable, no CVA tenderness Skin: Skin warm and dry. Normal skin color. Normal skin turgor. Extremities: No lower extremity edema. No calf tenderness Neuro: Oriented X 3. No motor deficit. No sensory deficit.No cerebellar signs , cranial nerves II-XII intact Medications Administered Discontinued Medications Generic Name Dose Route Start Last Admin Trade Name Freq PRN Reason Stop Dose Admin Sumatriptan Succinate 6 mg 07/14/24 23:03 07/14/24 23:19 Sumatriptan Succinate 6 Mg/0.5 Ml Vial SUBCUT 07/14/24 23:04 6 mg ONCE ONE Administration Medical Decision Making Medical Decision Making [facility] Narrative: Patient clinically with ocular migraine for a month off and on responded to Im itrex feeling much better at this time will discharge patient home on Imitrex and Fioricet CT scan of the head is negative for acute Differential Diagnosis Differential Diagnoses: The differential diagnosis associated with the presentation includes Migraine/NIKKI Independent Interpretation I performed an independent interpretation of an: CT Scan Radiology Impression Discussion of test interpretation with radiology: I have reviewed the radiologist's reading. Discharge Plan Discharge Clinical Impression: Migraine Patient Disposition: Home, Self-Care Instructions: Migraine Headache (ED) Additional Instructions: Take medication as prescribed Follow up with your PCP Prescriptions: New sumatriptan succinate [Imitrex] 50 mg tablet 50 mg PO Q2H PRN (Reason: migraine headache) Qty: 10 0RF Rx Instructions: do not exceed 2 doses per 24 hrs aiuzciplau-ceqmhcnosmksx-kkeg 50-325-40 mg tablet 1 tab PO Q6H PRN (Reason: haeadace) Qty: 20 0RF No Action nicotine 21 mg/24 hr Patch 24 Hour 21 mg transdermal DAILY 28 Days Qty: 28 0RF nicotine (polacrilex) 2 mg Gum 4 mg buccal Q2H PRN (Reason: Nicotine Cravings) 30 Days Qty: 120 2RF buprenorphine-naloxone [Suboxone] 2-0.5 mg Film 0.5 film sublingual DAILY 30 Days Qty: 15 0RF risperidone 2 mg Tablet 2 mg PO BEDTIME 30 Days Qty: 30 0RF hydroxyzine HCl 25 mg Tablet 25 mg PO Q6H PRN (Reason: Anxiety) 30 Days Qty: 30 0RF trazodone 50 mg Tablet 50 mg PO BEDTIME PRN (Reason: Insomnia) 30 Days Qty: 30 0RF gabapentin 300 mg capsule 600 mg PO TID 30 Days Qty: 180 0RF naloxone [Narcan] 4 mg/actuation spray,non-aerosol 4 mg intranasal Q2M PRN (Reason: opioid overdose) 1 Days Qty: 2 0RF Rx Instructions: spray 1 dose into ONE nostril; alternate nostrils w each dose until help arrives dextroamphetamine-amphetamine [Adderall XR] 30 mg capsule,extended release 24hr 30 mg PO DAILY 15 Days Qty: 15 0RF Rx Instructions: Partial Fill upon patient request. epinephrine 0.3 mg/0.3 mL auto-injector 0.3 mg IM Q10M PRN (Reason: anaphylaxis) Qty: 2 0RF Rx Instructions: for 2 doses naproxen [EC-Naprosyn] 500 mg tablet,delayed release (DR/EC) 500 mg PO BID PRN (Reason: pain) Qty: 20 0RF Print Language: Mongolian
[2024-07-14] MEDS: SUMAtriptan succinate 6 MG/0.5 ML VIAL SUBCUT (23:19)
[2024-07-14 23:22] VITALS: BP 106/57; PULSE 55; RESP 16; TEMP 36.7; O2SAT 97
[2024-07-15 00:03] VITALS: BP 106/57; PULSE 55; RESP 16; TEMP 36.7; O2SAT 97
== END 2024-07-15 00:04 | disposition home or self-care (01) ==
PROVIDERS: Emergency Provider Internal Medicine; PCP Internal Medicine
DX: G43.909 Migraine, unspecified, not intractable, without status migrainosus (principal); R42 Dizziness and giddiness; F17.210 Nicotine dependence, cigarettes, uncomplicated
CPT/HCPCS: 70450; 96372; 99284; J3030

== ENCOUNTER → 2024-07-14 18:35 | Outpatient (BNV) | payer OTHER, SELFPAY | PROVIDERS: PCP Internal Medicine; Visit Provider Nuclear Medicine | DX: R51.9 Headache, unspecified (principal) | CPT/HCPCS: 70450 ==